=== PATIENT | female | born 1960 | race Caucasian/White ===

== ENCOUNTER 2016-09-05 15:03 | Inpatient (IN) | payer OTHER ==
[~2016-09-05] VITALS: Ht 170.2 cm; Wt 142.4 kg
[~2016-09-05 15:03] MED LIST: ALPR0.5T2 PO; ARIP2TAB PO; ASPI81EC97 PO; BUSP30TA PO; CALC600T56 PO; DILT60TA PO; DIVA500T47 PO; FLUO40CA6 PO; FURO-570 PO; TRAM50TA94 PO; [UNRECOGNIZED DRUG - CODE] PO; [UNRECOGNIZED DRUG - CODE] PO; [UNRECOGNIZED DRUG - CODE] PO
[2016-09-05 15:59] VITALS: BP 82/63
[2016-09-05] MEDS ORDERED: PREN-103 PO (16:11)
[2016-09-05] MEDS ORDERED: PREG150C PO (16:11)
[2016-09-05] MEDS ORDERED: MULT-967 SL (16:11)
[2016-09-05] MEDS ORDERED: MIRA25TE PO (16:11)
[2016-09-05] MEDS ORDERED: BACL10TA4 PO (16:11)
[2016-09-05] MEDS ORDERED: DIPH25TA53 PO (16:11)
--- NOTE | 2016-09-05 16:23 | NUR ---
URINE CUP GIVEN WITH INSTRUCTIONS FOR SAMPLE. PT WHEELCHAIRED TO RESTROOM WITH FRIEND.
--- NOTE | 2016-09-05 16:28 | NUR ---
Patient transferred to bed 6 via wheelchair by tech. RN evaluating patient at bedside.
[2016-09-05] MEDS ORDERED: NACL 0.9% 2,000 ML IV ONE (16:30)
--- NOTE | 2016-09-05 16:30 | NUR ---
56/F BIB FRIEND C/O FEVER, VERNON, BODYACHES, LEFT LEG PAIN/INJURY RT FALL FROM LEG WEAKNESS. HX UROSEPSIS, HTN, 3RD STAGE KIDNEY DISEASE, FRIBROMYALGIA, DEPRESSRION, BIPOLAR DISORDER. REPORTS 102F FEVER LAST NIGHT. STS TOOK ONE OF FRIEND'S AMOXICILLIN.DENIES N/V/D; PT STATED HAS HEADACHE NOTED AT THIS TIME. SKIN BRUISE BOTH LEGS;EDEMA +2 BLE; AAOX4 WITH EVEN AND UNSTEADY GAIT,AMBULATED W/ WALKER; LUNGS CLEAR BL; HR EVEN AND REGULAR; PT DENIES ANY FEVER, CP, SOB, OR COUGH AT THIS TIME; PATIENT STATES PAIN OF 4/10 AT THIS TIME; PATIENT POSITIONED FOR COMFORT; HOB ELEVATED; BEDRAILS UP X2; BED DOWN. ER MD MADE AWARE OF PT STATUS.
[2016-09-05 16:59] LABS: BASOPHILS # (AUTO) 0.1 K/uL (0.00-0.22); BASOPHILS % (AUTO) 1.1 % (0.0-2.0); EOSINOPHILS # (AUTO) 0.2 K/uL (0-0.4); EOSINOPHILS % (AUTO) 1.8 % (0.0-4.0); HEMATOCRIT 38.6 % (36-48); HEMOGLOBIN 12.3 g/dL (12.0-16.0); LYMPHOCYTES # (AUTO) 1.5 K/uL (2.5-16.5); LYMPHOCYTES % (AUTO) 16.9 % (20.5-51.1); MEAN CORPUSCULAR HEMOGLOBIN 29 pg (27-31); MEAN CORPUSCULAR HGB CONC 32 g/dL (33-37); MEAN CORPUSCULAR VOLUME 92 fL (80-94); MONOCYTES # (AUTO) 1.2 K/uL (0.8-1.0); MONOCYTES % (AUTO) 13.8 % (1.7-9.3); NEUTROPHILS # (AUTO) 5.8 K/uL (1.8-7.7); NEUTROPHILS % (AUTO) 66.4 % (42.2-75.2); PLATELET COUNT (AUTO) 132 K/uL (140-450); RED BLOOD CELL COUNT(AUTO) 4.21 MIL/uL (4.20-5.40); RED CELL DISTRIBUTION WIDTH 12.7 % (11.6-13.7); WHITE BLOOD COUNT (AUTO) 8.8 K/uL (4.8-10.8)
[2016-09-05 17:07] LABS: BLOOD GAS HCO3 22.5 mmol/L; BLOOD GAS PCO2 40.1 mmHg (20-50); BLOOD GAS PH 7.366 (7.35-7.45); BLOOD GAS PO2 87.3 mmHg
[2016-09-05 17:13] LABS: CALCIUM 8.6 mg/dL (8.5-10.1); CARBON DIOXIDE 28.3 mmol/L (21-32); CREATININE 1.9 mg/dL (0.6-1.3); POTASSIUM 4.3 mmol/L (3.5-5.1)
[2016-09-05 17:18] LABS: BLOOD GAS BASE EXCESS -2.7 mmol/L (-2.0-2.0)
[2016-09-05 17:19] LABS: BLOOD GAS O2 SAT% 95.9 % (92.0-98.5)
[2016-09-05 17:20] LABS: PARTIAL THROMBOPLASTIN TIME 30.3 secs (22-35.6); PROTHROMBIN TIME 9.7 secs (10.8-13.4)
[2016-09-05 17:21] LABS: LACTIC ACID 1.6 mmol/L (0.4-2.0)
[2016-09-05 17:28] LABS: ALBUMIN 2.7 g/dL (3.4-5.0); TOTAL BILIRUBIN 0.5 mg/dL (0.0-1.0); TOTAL PROTEIN, SERUM 6.7 g/dL (6.4-8.2)
--- NOTE | 2016-09-05 17:30 | NUR ---
Patient appears to be resting comfortably in bed. Vital Signs within normal limits. Respirations even and unlabored.WILL CONTINUE TO MONITOR.
[2016-09-05 17:31] LABS: CKMB RELATIVE INDEX 0.5 (0.0-2.5); CREATINE KINASE MB 7.6 ng/mL (0-3.6)
--- NOTE | 2016-09-05 19:14 | NUR ---
GAVE REPORT TO MARISOL LOPEZ
--- NOTE | 2016-09-05 19:15 | NUR ---
Pt report given to MARISOL LOPEZ. Transfer of care at this time.
--- NOTE | 2016-09-05 19:15 | NUR ---
REPORT RECEIVED FROM MARISOL CODY
[2016-09-05] MEDS ORDERED: ONDANSETRON 4 MG/2 ML VIAL IVP PRN (19:25)
[2016-09-05] MEDS ORDERED: ACETAMINOPHEN 325 MG TAB PO PRN (19:25)
[2016-09-05] MEDS ORDERED: HYDROcodone/APAP 5/325 MG 1 TAB TAB PO PRN (19:25)
[2016-09-05 19:28] LABS: APPEARANCE,URINE CLOUDY (CLEAR); BILIRUBIN,URINE NEGATIVE (NEGATIVE); BLOOD, URINE TRACE-I (NEGATIVE); COLOR,URINE YELLOW (YELLOW); LEUKOCYTE ESTERASE ,URINE 2+ (NEGATIVE); NITRITE, URINE NEGATIVE (NEGATIVE); PH,URINE 5.5 (5.0-9.0); PROTEIN,URINE NEGATIVE (NEGATIVE); UGLUCOSE NEGATIVE (NEGATIVE)
[2016-09-05] MEDS ORDERED: NACL 0.9% 2,500 ML IV ONE (19:30)
[2016-09-05] MEDS ORDERED: NACL 0.9% 1,000 ML IV ONE (19:40)
[2016-09-05 19:41] LABS: BACTERIA,URINE 1+ /HPF (None Seen); RBC,URINE 0-3 /HPF (0-5); WBC,URINE TOO MANY TO COUNT /HPF (0-5)
[2016-09-05 20:04] LABS: CHOL/HDL RATIO 2.9 (1-4.5)
[2016-09-05] MEDS ORDERED: ALPRAZolam 0.5 MG TAB PO PRN (20:05)
[2016-09-05 20:12] LABS: FREE T4 (FREE THYROXINE) 1.17 ng/dL (0.76-1.46); THYROID STIMULATING HORMONE 1.79 uIU/mL (0.34-3.76)
[2016-09-05] MEDS ORDERED: DEXTROSE 50% 50 ML SYR IVP PRN (20:15)
--- NOTE | 2016-09-05 20:15 | NUR ---
Patient will be admitted to care of DR DHILLON. Admited to TE;E. Will go to room 110A. Belongings list completed. Report to MARISOL LEMUS.
[2016-09-05 20:48] VITALS: BP 138/77
--- NOTE | 2016-09-05 20:48 | NUR ---
RECEIVED REPORT FROM ED RN TAWANNA FOR CONTINUITY OF CARE. 56 Y.O. FEMALE ARRIVED TO UNIT WITH DX: SEPSIS 2/2 TO UTI. PATIENT IS A&OX4, DISCUSSED PLAN OF CARE WITH PATIENT AND AT BEDSIDE. SHIFT ASSESSMENT DONE, VS TAKEN, STABLE. NO S/S OF RESPIRATORY DISTRESS NOTED ON ROOM AIR. PATIENT DENIES PAIN AT THIS TIME. WRISTBANDS APPLIED, MRSA SWAB TAKEN. SKIN INTACT. SAFETY PRECAUTIONS ENFORCED. CALL LIGHT WITHIN REACH, WILL CONTINUE TO MONITOR.
[2016-09-05] MEDS ORDERED: BUPROPION HCL 200 MG PO SCH (21:00)
[2016-09-05] MEDS: BACLOFEN 10 MG TAB PO SCH (21:51)
[2016-09-05] MEDS: traMADol 50 MG TAB PO SCH (21:52)
[2016-09-05] MEDS: FLUoxetine 20 MG CAP PO SCH (21:52)
[2016-09-05] MEDS: BLOOD GLUCOSE MONITORING 1 DEV DEV FS SCH (21:58)
[2016-09-05] MEDS: NACL 0.9% 1,000 ML IV SCH (22:00)
[2016-09-05] MEDS: MORPHINE SULFATE 2 MG/ML SYR IVP PRN (22:14)
--- NOTE | 2016-09-05 22:14 | NUR ---
PT C/O PAIN, VS TAKEN AN STABLE, MEDICATED PER MD ORDER. WILL CONTINUE TO MONITOR.
[2016-09-06] VITALS: BP 106/53
--- NOTE | 2016-09-06 00:30 | NUR ---
VS TAKEN, STABLE. PATIENT RESTING AT THIS TIME, IV INFUSING WELL. CALL LIGHT WITHIN REACH. WILL CONTINUE TO MONITOR.
--- NOTE | 2016-09-06 02:00 | NUR ---
PATIENT SLEEPING AT THIS TIME. NO S/S OF DISTRESS OR DISCOMFORT NOTED. WILL CONTINUE TO MONITOR.
[2016-09-06 04:00] VITALS: BP 104/61
--- NOTE | 2016-09-06 04:05 | NUR ---
VS TAKEN, STABLE. PATIENT AWAKE WATCHING TV, ALL NEEDS MET AT THIS TIME. WILL CONTINUE TO MONITOR.
--- NOTE | 2016-09-06 06:00 | NUR ---
PATIENT RESTING IN BED WATCHING TV, C/O FEELING WARM TEMP TAKEN 98.5. CALL LIGHT WITHIN REACH.
[2016-09-06] MEDS: BLOOD GLUCOSE MONITORING 1 DEV DEV FS SCH ×4 (06:21→21:03)
--- NOTE | 2016-09-06 07:15 | NUR ---
ENDORSED PATIENT TO DAY RN FOR CONTINUITY OF CARE, PATIENT IS IN STABLE CONDITION.
--- NOTE | 2016-09-06 07:15 | NUR ---
RECEIVED REPORT FROM NIGHT NURSE. PT IS AAOX4, ON ROOM AIR IV TO RIGHT AC 20G INFUSING WELL. INITIAL ASSESSMENT COMPLETED, REVIEWED PLAN OF CARE WITH PT, PT VERBALIZED UNDERSTANDING. ALL SAFETY PRECAUTIONS MET. CALL LIGHT WITHIN REACH. WILL CONTINUE TO MONITOR.
[2016-09-06 07:38] LABS: ANION GAP 14.2 (8-16); CALCIUM 8.2 mg/dL (8.5-10.1); CARBON DIOXIDE 23.9 mmol/L (21-32); CREATININE 1.5 mg/dL (0.6-1.3); POTASSIUM 4.1 mmol/L (3.5-5.1)
[2016-09-06] MEDS: HYDROcodone/APAP 10/325 MG 1 TAB TAB PO SCH ×5 (07:39→20:55)
[2016-09-06 07:44] LABS: BASOPHILS % (AUTO) 0.7 % (0.0-2.0); EOSINOPHILS # (AUTO) 0.2 K/uL (0-0.4); EOSINOPHILS % (AUTO) 3.2 % (0.0-4.0); HEMATOCRIT 31.7 % (36-48); HEMOGLOBIN 10.4 g/dL (12.0-16.0); LYMPHOCYTES # (AUTO) 1.4 K/uL (2.5-16.5); LYMPHOCYTES % (AUTO) 22.1 % (20.5-51.1); MEAN CORPUSCULAR HEMOGLOBIN 30 pg (27-31); MEAN CORPUSCULAR HGB CONC 33 g/dL (33-37); MEAN CORPUSCULAR VOLUME 91 fL (80-94); MONOCYTES # (AUTO) 0.9 K/uL (0.8-1.0); MONOCYTES % (AUTO) 14.7 % (1.7-9.3); NEUTROPHILS # (AUTO) 3.8 K/uL (1.8-7.7); NEUTROPHILS % (AUTO) 59.3 % (42.2-75.2); PLATELET COUNT (AUTO) 110 K/uL (140-450); RED BLOOD CELL COUNT(AUTO) 3.48 MIL/uL (4.20-5.40); RED CELL DISTRIBUTION WIDTH 12.7 % (11.6-13.7); WHITE BLOOD COUNT (AUTO) 6.3 K/uL (4.8-10.8)
[2016-09-06 07:47] LABS: MAGNESIUM 1.9 mg/dL (1.8-2.4); PHOSPHORUS 3.3 mg/dL (2.5-4.9)
[2016-09-06] MEDS: NACL 0.9% 1,000 ML IV SCH ×2 (07:51→20:21)
[2016-09-06 08:00] VITALS: BP 106/62
[2016-09-06] MEDS ORDERED: NON-FORMULARY ITEM (Mirabegron (Myrbetriq) 25 MG) PO SCH (09:00)
[2016-09-06] MEDS ORDERED: NON-FORMULARY ITEM (Aripiprazole (Abilify) 2 MG) PO SCH (09:00)
--- NOTE | 2016-09-06 09:15 | NUR ---
PATIENT HAS BEEN SCREENED AND CATEGORIZED HIGH NUTRITION RISK. PATIENT WILL BE SEEN WITHIN 1-2 DAYS OF ADMISSION. 09/06/16-09/07/[address]
[2016-09-06 09:17] LABS: HEMOGLOBIN A1C 5.1 % (4.8-5.6)
[2016-09-06] MEDS: DIVALPROEX 500 MG TABEC PO SCH ×3 (09:23→16:57)
[2016-09-06] MEDS: traMADol 50 MG TAB PO SCH ×2 (09:24→20:56)
[2016-09-06] MEDS: LACTOBACILLUS RHAMNOSUS GG 1 EACH CAP PO SCH (09:24)
[2016-09-06] MEDS: PREGABALIN 50 MG CAP PO SCH ×3 (09:24→16:57)
[2016-09-06] MEDS: DILTIAZEM 60 MG TAB PO SCH (09:25)
[2016-09-06] MEDS: BACLOFEN 10 MG TAB PO SCH ×2 (09:25→20:55)
[2016-09-06] MEDS: ECOTRIN 81 MG TABEC PO SCH (09:26)
[2016-09-06] MEDS: CALCIUM CARB 600 MG TAB PO SCH (09:26)
[2016-09-06] MEDS: FLUoxetine 20 MG CAP PO SCH ×2 (09:26→20:56)
[2016-09-06 12:00] VITALS: BP 113/58
--- NOTE | 2016-09-06 12:30 | NUR ---
DUE MEDICATIONS GIVEN. PT CURRENTLY EATING LUNCH. NO S/S OF DISTRESS NOTED, FAMILY AT BEDSIDE. ALL NEEDS MET. CALL LIGHT WITHIN REACH. WILL CONTINUE TO MONITOR.
--- NOTE | 2016-09-06 13:53 | NUR ---
CHECKED IN ON PT, PY CURRENTLY VISITING WITH FAMILY, NO S/S OF DISTRESS OR DISCOMFORT NOTED ALL NEEDS MET. CALL LIGHT WITHIN REACH. WILL CONTINUE TO MONITOR.
--- NOTE | 2016-09-06 15:35 | NUR ---
09/06/16 RD INITIAL ASSESSMENT COMPLETED PLEASE REFER TO NUTRITION ASSESSMENT UNDER CARE ACTIVITY FOR ESTIMATED NUTRITIONAL NEEDS. 1. CONTINUE REGULAR DIET 2. RD TO FOLLOW-UP 2-3 DAYS; HIGH RISK [address]ONG [address]
[2016-09-06 16:00] VITALS: BP 110/58
--- NOTE | 2016-09-06 16:59 | NUR ---
DUE MEDICATIONS GIVEN. ALL NEEDS MET. WILL CONTINUE TO MONITOR.
--- NOTE | 2016-09-06 19:28 | NUR ---
ENDORSED PLAN OF CARE TO NIGHT NURSE, PT IN STABLE CONDITION.
--- NOTE | 2016-09-06 19:29 | NUR ---
RECD. RESTING IN BED, AWAKE, A/OX4. RESPIRATION EVEN AND UNLABORED. IV OF NS AT 80 ML/HR INFUSING, RIGHT AC G20. WATCHING TV. PLAN OF CARE FOR THE SHIFT DISCUSSED. VERBALIZED UNDERSTANDING. SAFETY MEASURES ENFORCED. DENIES PAIN 0/10.
[2016-09-06 20:00] VITALS: BP 98/51
--- NOTE | 2016-09-06 20:00 | NUR ---
Patient's Plan of Care was discussed and reviewed with ELECTRIC METER INSTALLER HELPER: MARIA G VILLAGOMEZ
--- NOTE | 2016-09-06 20:56 | NUR ---
DUE PO MEDICATIONS GIVEN. ATE 100% OF SNACK.
[2016-09-07] VITALS: BP 117/66
--- NOTE | 2016-09-07 | NUR ---
SLEEPING COMFORTABLY IN BED.
[2016-09-07 04:00] VITALS: BP 118/64
--- NOTE | 2016-09-07 04:00 | NUR ---
RESTING COMFORTABLY IN BED, NO COMPLAINT OF PAIN OR DISCOMFORT.
[2016-09-07] MEDS: NACL 0.9% 1,000 ML IV SCH ×2 (05:06→08:15)
[2016-09-07] MEDS: BLOOD GLUCOSE MONITORING 1 DEV DEV FS SCH ×4 (06:19→21:11)
--- NOTE | 2016-09-07 06:40 | NUR ---
CONDITION REMAIN STABLE. WILL ENDORSED TO AM NURSE FOR CONTINUITY OF CARE.
[2016-09-07 06:55] LABS: BASOPHILS # (AUTO) 0.1 K/uL (0.00-0.22); EOSINOPHILS # (AUTO) 0.4 K/uL (0-0.4); EOSINOPHILS % (AUTO) 5.9 % (0.0-4.0); HEMATOCRIT 33.6 % (36-48); LYMPHOCYTES # (AUTO) 1.1 K/uL (2.5-16.5); LYMPHOCYTES % (AUTO) 19.3 % (20.5-51.1); MEAN CORPUSCULAR HEMOGLOBIN 30 pg (27-31); MEAN CORPUSCULAR HGB CONC 33 g/dL (33-37); MEAN CORPUSCULAR VOLUME 91 fL (80-94); MONOCYTES # (AUTO) 0.7 K/uL (0.8-1.0); MONOCYTES % (AUTO) 12.1 % (1.7-9.3); NEUTROPHILS # (AUTO) 3.6 K/uL (1.8-7.7); NEUTROPHILS % (AUTO) 61.7 % (42.2-75.2); PLATELET COUNT (AUTO) 135 K/uL (140-450); RED BLOOD CELL COUNT(AUTO) 3.69 MIL/uL (4.20-5.40); RED CELL DISTRIBUTION WIDTH 12.7 % (11.6-13.7); WHITE BLOOD COUNT (AUTO) 5.9 K/uL (4.8-10.8)
[2016-09-07 07:03] LABS: ANION GAP 11.4 (8-16); CALCIUM 8.5 mg/dL (8.5-10.1); CARBON DIOXIDE 27.3 mmol/L (21-32); CREATININE 1.6 mg/dL (0.6-1.3); POTASSIUM 4.7 mmol/L (3.5-5.1)
[2016-09-07 07:16] LABS: PHOSPHORUS 4.2 mg/dL (2.5-4.9)
--- NOTE | 2016-09-07 07:17 | NUR ---
RECEIVED REPORT FROM NIGHT NURSE. PT IS AAOX4, ON ROOM AIR IV TO RIGHT AC 20G INFUSING WELL. PT STATES NO PAIN, NO S/S OF DISTRESS OR DISCOMFORT. INITIAL ASSESSMENT COMPLETED, REVIEWED PLAN OF CARE WITH PT, PT VERBALIZED UNDERSTANDING. ALL SAFETY PRECAUTIONS MET. CALL LIGHT WITHIN REACH. WILL CONTINUE TO MONITOR.
--- NOTE | 2016-09-07 07:17 | NUR ---
ENDORSED TO MARISOL GIBBS FOR CONTINUITY OF CARE.
[2016-09-07 07:36] VITALS: BP 126/74
[2016-09-07 07:44] LABS: CKMB RELATIVE INDEX 0.6 (0.0-2.5); CREATINE KINASE MB 1.9 ng/mL (0-3.6)
[2016-09-07] MEDS: DIVALPROEX 500 MG TABEC PO SCH (08:15)
[2016-09-07] MEDS: FLUoxetine 20 MG CAP PO SCH ×2 (08:15→21:07)
[2016-09-07] MEDS: PREGABALIN 50 MG CAP PO SCH ×3 (08:15→16:15)
[2016-09-07] MEDS: HYDROcodone/APAP 10/325 MG 1 TAB TAB PO SCH ×4 (08:15→21:06)
[2016-09-07] MEDS: CALCIUM CARB 600 MG TAB PO SCH (08:15)
[2016-09-07] MEDS: ECOTRIN 81 MG TABEC PO SCH (08:15)
--- NOTE | 2016-09-07 08:15 | NUR ---
DUE MEDICATIONS GIVEN. PT CURRENTLY EATING BREAKFAST, ALL NEEDS MET. CALL LIGHT WITHIN REACH. WILL CONTINUE TO MONITOR.
[2016-09-07] MEDS: traMADol 50 MG TAB PO SCH ×2 (08:16→21:06)
[2016-09-07] MEDS: LACTOBACILLUS RHAMNOSUS GG 1 EACH CAP PO SCH (08:16)
[2016-09-07] MEDS: DILTIAZEM 60 MG TAB PO SCH (08:16)
[2016-09-07] MEDS: BACLOFEN 10 MG TAB PO SCH ×2 (08:16→21:05)
--- NOTE | 2016-09-07 10:05 | NUR ---
PT CURRENTLY SLEEPING, CALL LIGHT WITHIN REACH. WILL CONTINUE TO MONITOR.
[2016-09-07] MEDS: LACTULOSE 20 GM/30 ML UDC PO SCH (12:32)
[2016-09-07] MEDS: MAGNESIUM HYDROXIDE 2400 MG/30 ML UDC PO SCH (12:32)
[2016-09-07] MEDS: DIVALPROEX 250 MG TABEC PO SCH ×2 (12:33→16:15)
--- NOTE | 2016-09-07 12:34 | NUR ---
DUE MEDICATIONS GIVEN. PT CURRENTLY EATING LUNCH. ALL NEEDS MET. CALL LIGHT WITHIN REACH. WILL CONTINUE TO MONITOR.
--- NOTE | 2016-09-07 14:10 | NUR ---
CHECKED IN ON PT, PT CURRENTLY IN BED, NO S/S OF DISTRESS NOTED, ALL NEEDS MET. CALL LIGHT WITHIN RAECH. WILL CONTINUE TO MONITOR.
[2016-09-07 16:00] VITALS: BP 103/55
--- NOTE | 2016-09-07 16:16 | NUR ---
DUE MEDICATIONS GIVEN. PT TOLERATED WELL. ALL NEEDS MET. CALL LIGHT WITHIN REACH. WILL CONTINUE TO MONITOR. FAMILY AT BEDSIDE.
[2016-09-07] MEDS ORDERED: ARIP5TAB10 PO (16:37)
[2016-09-07] MEDS ORDERED: ARIPiprazole 10 MG TAB PO SCH (17:00)
--- NOTE | 2016-09-07 17:47 | NUR ---
PT CURRENTLY EATING DINNER, NO S/S OF DISTRESS NOTED, FAMILY AT BEDSIDE. CALL LIGHT WITHIN REACH. WILL CONTINUE TO MONITOR.
--- NOTE | 2016-09-07 19:20 | NUR ---
ENDORSED PLAN OF CARE TO NIGHT NURSE, PT IN STABLE CONDITION.
--- NOTE | 2016-09-07 19:22 | NUR ---
RECEIVED PT FROM BERNIE RN PT IS AAOX4 GENERALIZED WEAKNESS IV ON RT AC INFUSING WELL REPOSITIONED INITIAL ASSESSMENT DONE
[2016-09-07 20:00] VITALS: BP 92/52
[2016-09-07] MEDS: BUSPIRONE HCL 30 MG PO SCH (21:05)
--- NOTE | 2016-09-07 21:30 | NUR ---
BLOOD SUGAR TEST 88 HS SNACK IS GIVEN PT HAS A GOOD APPETITE
--- NOTE | 2016-09-07 23:00 | NUR ---
PT INCONTINENT LINEN CHANGED, REPOSITIONED Q2H NOT DISTRESS NOTED
[2016-09-08] VITALS: BP 102/58
[2016-09-08] MEDS: NACL 0.9% 1,000 ML IV SCH ×3 (01:20→14:01)
--- NOTE | 2016-09-08 01:33 | NUR ---
PT SLEEPING WELL REPOSITIOED NOT DISTRESS NOTED IV ON RT ARM INFUSING WELL
--- NOTE | 2016-09-08 04:00 | NUR ---
SPONGE BATH GIVEN, LINEN CHANGED, PT REPOSITIONED NOT DISTRESS NOTED
--- NOTE | 2016-09-08 06:04 | NUR ---
PT AAOX4 COOERATIVE, NOT FEVER DENIES ANY PAIN BLOOD SUGAR TEST 88
[2016-09-08 07:04] LABS: BASOPHILS # (AUTO) 0.1 K/uL (0.00-0.22); BASOPHILS % (AUTO) 1.2 % (0.0-2.0); EOSINOPHILS # (AUTO) 0.4 K/uL (0-0.4); EOSINOPHILS % (AUTO) 7.3 % (0.0-4.0); HEMATOCRIT 32.3 % (36-48); HEMOGLOBIN 10.5 g/dL (12.0-16.0); LYMPHOCYTES # (AUTO) 1.5 K/uL (2.5-16.5); LYMPHOCYTES % (AUTO) 27.7 % (20.5-51.1); MEAN CORPUSCULAR HEMOGLOBIN 30 pg (27-31); MEAN CORPUSCULAR HGB CONC 32 g/dL (33-37); MEAN CORPUSCULAR VOLUME 92 fL (80-94); MONOCYTES # (AUTO) 0.8 K/uL (0.8-1.0); MONOCYTES % (AUTO) 15.4 % (1.7-9.3); NEUTROPHILS # (AUTO) 2.5 K/uL (1.8-7.7); NEUTROPHILS % (AUTO) 48.4 % (42.2-75.2); PLATELET COUNT (AUTO) 141 K/uL (140-450); RED BLOOD CELL COUNT(AUTO) 3.53 MIL/uL (4.20-5.40)
[2016-09-08 07:11] LABS: ANION GAP 9.1 (8-16); CALCIUM 8.4 mg/dL (8.5-10.1); CARBON DIOXIDE 29.6 mmol/L (21-32); CREATININE 1.5 mg/dL (0.6-1.3); POTASSIUM 4.7 mmol/L (3.5-5.1)
--- NOTE | 2016-09-08 07:20 | NUR ---
PT AWAKE AND ALERT, NO SIGNS OF ACUTE DISTRESS. BREATHING EVEN AND UNLABORED BILATERALLY, BOWEL SOUNDS ACTIVE IN ALL 4 QUADRANTS, SKIN INTACT, ON ROOM AIR, AMBULATORY WITH BRP USES WALKER, IV PATENT WITH NO REDNESS OR SWELLING, BOWEL AND BLADDER CONTINENT, BED IN LOW POSITION WITH BILATERAL HALF SIDE RAILS UP, CALL LIGHT WITHIN REACH, RE-ORIENTED PATIENT TO UNIT AND HOSPITAL, PT VERBALIZED UNDERSTANDING.
[2016-09-08 07:25] LABS: MAGNESIUM 1.8 mg/dL (1.8-2.4); PHOSPHORUS 3.7 mg/dL (2.5-4.9)
[2016-09-08] MEDS: BLOOD GLUCOSE MONITORING 1 DEV DEV FS SCH ×4 (07:30→21:01)
[2016-09-08 07:38] LABS: WHITE BLOOD COUNT (AUTO) 5.3 K/uL (4.8-10.8)
[2016-09-08 08:00] VITALS: BP 124/72
[2016-09-08] MEDS: ARIPiprazole 10 MG TAB PO SCH (08:22)
[2016-09-08] MEDS: BACLOFEN 10 MG TAB PO SCH ×2 (08:23→21:52)
[2016-09-08] MEDS: DIVALPROEX 250 MG TABEC PO SCH ×3 (08:23→16:49)
[2016-09-08] MEDS: DILTIAZEM 60 MG TAB PO SCH (08:23)
[2016-09-08] MEDS: ECOTRIN 81 MG TABEC PO SCH (08:23)
[2016-09-08] MEDS: PREGABALIN 50 MG CAP PO SCH ×3 (08:24→16:49)
[2016-09-08] MEDS: CALCIUM CARB 600 MG TAB PO SCH (08:24)
[2016-09-08] MEDS: LACTOBACILLUS RHAMNOSUS GG 1 EACH CAP PO SCH (08:24)
[2016-09-08] MEDS: FLUoxetine 20 MG CAP PO SCH ×2 (08:24→21:52)
[2016-09-08] MEDS: traMADol 50 MG TAB PO SCH ×2 (08:24→21:52)
[2016-09-08] MEDS: HYDROcodone/APAP 10/325 MG 1 TAB TAB PO SCH ×4 (08:25→21:52)
[2016-09-08] MEDS: BUSPIRONE HCL 30 MG PO SCH (08:32)
--- NOTE | 2016-09-08 11:53 | NUR ---
09/08/16 RD FOLLOW UP COMPLETED. PLEASE REFER TO NUTRITION PROGRESS NOTE UNDER CARE ACTIVITY FOR ESTIMATED NUTRITION NEEDS. RD RECOMMENDATIONS: 1- RECOMMEND CONTINUE CARDIAC DIET; SUFFICIENT TO MEET >75% ESTIMATED DAILY NUTRITIONAL NEEDS. 2- EDUCATED PT ON DIET. 3- FOLLOW UP 3-5 DAYS; MODERATE RISK. DELILAH VITAL MBA, RD
[2016-09-08] MEDS: MAGNESIUM HYDROXIDE 2400 MG/30 ML UDC PO SCH (12:22)
[2016-09-08] MEDS: LACTULOSE 20 GM/30 ML UDC PO SCH (12:23)
--- NOTE | 2016-09-08 12:43 | NUR ---
RECEIVED ORDERS FOR MORNING LABS FROM DR KHAN, NOTED, WILL CARRY OUT.
[2016-09-08] MEDS ORDERED: PATIENTS OWN TABLET PO SCH ×3 (15:00→17:00)
[2016-09-08 16:00] VITALS: BP 108/60
--- NOTE | 2016-09-08 16:22 | NUR ---
PHYSICAL THERAPY CO-SIGN The Physical Therapy Progress Notes documented by Education Analyst have been reviewed. Reviewed/Co-Signed by: Jo Ann Jean Documentation Done by:WINDY STARKEY AERIAL INSTALLER PROGRESS SHAMEKA; WILL BENEFIT W/ P.T. AFTER ACUTE STAY PRIOR TO RETURNING HOME. Addendum: 09/08/16 at 1622 by Jo Ann Jean PT Amended: Links added.
[2016-09-08] MEDS: buPROPion 150 MG TABER PO SCH (16:49)
--- NOTE | 2016-09-08 19:37 | NUR ---
PT AWAKE AND ALERT, NO SIGNS OF ACUTE DISTRESS. BED IN LOW POSITION BILATERAL HALF SIDE RAILS UP WITH CALL LIGHT WITHIN REACH. ENDORSED PATIENT TO MEAL COOKER NURSE FOR CONTINUITY OF CARE.
--- NOTE | 2016-09-08 21:52 | NUR ---
DUE MEDICATIONS GIVEN.
[2016-09-09] VITALS: BP 101/60
--- NOTE | 2016-09-09 | NUR ---
AWAKE,NOT IN ANY KIND OF DISTRESS. NO PAIN OR DISCOMFORT NOTED. SNACK OF PUDDING AND APPLE JUICE GIVEN REQUESTED. SIDE RAILS UP,CALL LIGHT WITHIN REACH. KEPT WARM AND COMFORTABLE. VS REMAIN STABLE.
[2016-09-09] MEDS: MORPHINE SULFATE 2 MG/ML SYR IVP PRN (04:21)
--- NOTE | 2016-09-09 04:21 | NUR ---
COMPLAINED OF LEG PAIN (6/10). MORPHINE 2 MG IVP GIVEN ORDERED. VS ARE OTHERWISE STABLE.
[2016-09-09 04:22] VITALS: BP 115/47
[2016-09-09] MEDS: BLOOD GLUCOSE MONITORING 1 DEV DEV FS SCH ×4 (06:11→20:27)
--- NOTE | 2016-09-09 06:11 | NUR ---
ACCICHECK=83. NO INSULIN COVERAGE ORDERED/NEEDED.
--- NOTE | 2016-09-09 07:14 | NUR ---
ENDORSED CARE TO HERBIE RN.
[2016-09-09 07:29] LABS: BASOPHILS # (AUTO) 0.1 K/uL (0.00-0.22); BASOPHILS % (AUTO) 1.8 % (0.0-2.0); EOSINOPHILS # (AUTO) 0.5 K/uL (0-0.4); EOSINOPHILS % (AUTO) 7.1 % (0.0-4.0); HEMATOCRIT 33.9 % (36-48); LYMPHOCYTES # (AUTO) 1.7 K/uL (2.5-16.5); LYMPHOCYTES % (AUTO) 26.6 % (20.5-51.1); MEAN CORPUSCULAR HEMOGLOBIN 30 pg (27-31); MEAN CORPUSCULAR HGB CONC 33 g/dL (33-37); MEAN CORPUSCULAR VOLUME 91 fL (80-94); MONOCYTES # (AUTO) 0.7 K/uL (0.8-1.0); MONOCYTES % (AUTO) 11.5 % (1.7-9.3); NEUTROPHILS # (AUTO) 3.5 K/uL (1.8-7.7); PLATELET COUNT (AUTO) 170 K/uL (140-450); RED BLOOD CELL COUNT(AUTO) 3.71 MIL/uL (4.20-5.40); RED CELL DISTRIBUTION WIDTH 12.8 % (11.6-13.7); WHITE BLOOD COUNT (AUTO) 6.5 K/uL (4.8-10.8)
[2016-09-09 07:30] LABS: ANION GAP 11.4 (8-16); CALCIUM 8.6 mg/dL (8.5-10.1); CARBON DIOXIDE 29.3 mmol/L (21-32); CREATININE 1.3 mg/dL (0.6-1.3); POTASSIUM 4.7 mmol/L (3.5-5.1)
[2016-09-09 07:52] LABS: PHOSPHORUS 3.4 mg/dL (2.5-4.9)
[2016-09-09 07:53] VITALS: BP 136/76
[2016-09-09] MEDS: ECOTRIN 81 MG TABEC PO SCH (08:19)
[2016-09-09] MEDS: buPROPion 150 MG TABER PO SCH ×3 (08:20→16:35)
[2016-09-09] MEDS: CALCIUM CARB 600 MG TAB PO SCH (08:20)
[2016-09-09] MEDS: DIVALPROEX 250 MG TABEC PO SCH ×3 (08:20→16:34)
[2016-09-09] MEDS: HYDROcodone/APAP 10/325 MG 1 TAB TAB PO SCH ×4 (08:20→21:24)
[2016-09-09] MEDS: LACTOBACILLUS RHAMNOSUS GG 1 EACH CAP PO SCH (08:20)
[2016-09-09] MEDS: DILTIAZEM 60 MG TAB PO SCH (08:21)
[2016-09-09] MEDS: BACLOFEN 10 MG TAB PO SCH ×2 (08:21→21:23)
[2016-09-09] MEDS: FLUoxetine 20 MG CAP PO SCH ×2 (08:21→21:24)
[2016-09-09] MEDS: ARIPiprazole 10 MG TAB PO SCH (08:21)
[2016-09-09] MEDS: traMADol 50 MG TAB PO SCH ×2 (08:21→21:24)
[2016-09-09] MEDS: PREGABALIN 50 MG CAP PO SCH ×3 (08:21→16:34)
[2016-09-09] MEDS: PATIENTS OWN TABLET PO SCH (08:22)
--- NOTE | 2016-09-09 09:25 | NUR ---
PT AWAKE AND ORIENTED X4, BREATHING EVENLY AND UNLABORED, NO SIGNS OF ACUTE DISTRESS. SKIN IS WARM AND DRY. . NO SIGNS OF ANY BOWEL/BLADDER DISCOMFORT. DENIES OF ANY PAIN OR DISCOMFORT AT THIS TIME, ALL NEEDS ATTENDED, SAFETY PRECAUTIONS MAINTAINED. CALL LIGHT WITHIN REACH.
[2016-09-09] MEDS: NACL 0.9% 1,000 ML IV SCH ×2 (10:39→21:23)
[2016-09-09] MEDS: LACTULOSE 20 GM/30 ML UDC PO SCH (12:08)
[2016-09-09] MEDS: MAGNESIUM HYDROXIDE 2400 MG/30 ML UDC PO SCH (12:08)
[2016-09-09 16:00] VITALS: BP 104/72
--- NOTE | 2016-09-09 18:04 | NUR ---
RECEIVED NEW LAB ORDERS FROM DR. KHAN, NOTED AND CARRIED OUT.
--- NOTE | 2016-09-09 19:03 | NUR ---
PT AWAKE AND RESPONSIVE, NO SIGNS OF ACUTE DISTRESS. ENDORSED TO ONCOMING BILL POSTER INSTALLER NURSE FOR CONTINUITY OF CARE.
--- NOTE | 2016-09-09 20:00 | NUR ---
RECEIVED ALERT,ORIENTED,VERBALLY RESPONSIVE. AFEBRILE, NOT IN ACUTE DISTRESS. DENIES ANY PAIN OR DISCOMFORT. WITH IV FLUIDS NS INFUSING AT 80 ML/HR VIA LEFT HAND #22 IV LINE. VS STABLE, WILL CONTINUE TO MONITOR. NEEDS ATTENDED.
--- NOTE | 2016-09-09 20:27 | NUR ---
[id number]. NO INSULIN COVERAGE NEEDED/ORDERED.
--- NOTE | 2016-09-09 21:24 | NUR ---
DUE MEDICATIONS GIVEN SCHEDULED.
[2016-09-10] VITALS: BP 121/70
--- NOTE | 2016-09-10 | NUR ---
AWAKE,NOT IN ANY KIND OF DISTRESS. NO PAIN OR DISCOMFORT NOTED. SIDE RAILS UP, CALL LIGHT WITHIN REACH. KEPT WARM AND COMFORTABLE. VS REMAIN STABLE.
--- NOTE | 2016-09-10 04:00 | NUR ---
ASLEEP, NO PAIN OR DISCOMFORT. NO SIGNIFICANT CHANGE IN CONDITION. WILL CONTINUE TO MONITOR.
[2016-09-10] MEDS: BLOOD GLUCOSE MONITORING 1 DEV DEV FS SCH ×3 (06:13→16:08)
--- NOTE | 2016-09-10 06:13 | NUR ---
ACCUCHECK=82, NO INSULIN COVERAGE NEEDED.
[2016-09-10 06:17] LABS: BASOPHILS # (AUTO) 0.1 K/uL (0.00-0.22); BASOPHILS % (AUTO) 1.3 % (0.0-2.0); EOSINOPHILS # (AUTO) 0.4 K/uL (0-0.4); EOSINOPHILS % (AUTO) 5.7 % (0.0-4.0); HEMATOCRIT 32.3 % (36-48); HEMOGLOBIN 10.4 g/dL (12.0-16.0); LYMPHOCYTES # (AUTO) 1.8 K/uL (2.5-16.5); LYMPHOCYTES % (AUTO) 27.6 % (20.5-51.1); MEAN CORPUSCULAR HEMOGLOBIN 29 pg (27-31); MEAN CORPUSCULAR HGB CONC 32 g/dL (33-37); MEAN CORPUSCULAR VOLUME 91 fL (80-94); MONOCYTES # (AUTO) 0.6 K/uL (0.8-1.0); MONOCYTES % (AUTO) 9.7 % (1.7-9.3); NEUTROPHILS # (AUTO) 3.6 K/uL (1.8-7.7); NEUTROPHILS % (AUTO) 55.7 % (42.2-75.2); PLATELET COUNT (AUTO) 202 K/uL (140-450); RED BLOOD CELL COUNT(AUTO) 3.54 MIL/uL (4.20-5.40); RED CELL DISTRIBUTION WIDTH 12.8 % (11.6-13.7); WHITE BLOOD COUNT (AUTO) 6.5 K/uL (4.8-10.8)
[2016-09-10 06:33] LABS: MAGNESIUM 2.1 mg/dL (1.8-2.4); PHOSPHORUS 3.4 mg/dL (2.5-4.9)
[2016-09-10 06:36] LABS: ANION GAP 10.6 (8-16); CALCIUM 8.5 mg/dL (8.5-10.1); CARBON DIOXIDE 29.3 mmol/L (21-32); CREATININE 1.4 mg/dL (0.6-1.3); POTASSIUM 4.9 mmol/L (3.5-5.1)
--- NOTE | 2016-09-10 07:13 | NUR ---
ENDORSED CARE TO HERBIE RN.
--- NOTE | 2016-09-10 07:14 | NUR ---
PT AWAKE AND ORIENTED X4, BREATHING EVENLY AND UNLABORED, NO SIGNS OF ACUTE DISTRESS. SKIN IS WARM AND DRY. NO SIGNS OF ANY BOWEL/BLADDER DISCOMFORT. DENIES OF ANY PAIN OR DISCOMFORT AT THIS TIME, ALL NEEDS ATTENDED, SAFETY PRECAUTIONS MAINTAINED. CALL LIGHT WITHIN REACH.
[2016-09-10 07:47] VITALS: BP 153/83
[2016-09-10] MEDS: DIVALPROEX 250 MG TABEC PO SCH ×3 (08:55→16:23)
[2016-09-10] MEDS: buPROPion 150 MG TABER PO SCH ×3 (08:55→16:23)
[2016-09-10] MEDS: ECOTRIN 81 MG TABEC PO SCH (08:56)
[2016-09-10] MEDS: ARIPiprazole 10 MG TAB PO SCH (08:56)
[2016-09-10] MEDS: BACLOFEN 10 MG TAB PO SCH (08:56)
[2016-09-10] MEDS: HYDROcodone/APAP 10/325 MG 1 TAB TAB PO SCH ×3 (08:56→16:23)
[2016-09-10] MEDS: traMADol 50 MG TAB PO SCH (08:56)
[2016-09-10] MEDS: CALCIUM CARB 600 MG TAB PO SCH (08:56)
[2016-09-10] MEDS: PREGABALIN 50 MG CAP PO SCH ×3 (08:56→16:23)
[2016-09-10] MEDS: LACTOBACILLUS RHAMNOSUS GG 1 EACH CAP PO SCH (08:56)
[2016-09-10] MEDS: DILTIAZEM 60 MG TAB PO SCH (08:57)
[2016-09-10] MEDS: FLUoxetine 20 MG CAP PO SCH (08:57)
[2016-09-10] MEDS: PATIENTS OWN TABLET PO SCH (09:00)
--- NOTE | 2016-09-10 10:04 | NUR ---
WAS SEEN BY PHYSICAL THERAPY TODAY. SEE PT NOTES FOR MORE INFO.
[2016-09-10] MEDS: NACL 0.9% 1,000 ML IV SCH (11:55)
[2016-09-10] MEDS: LACTULOSE 20 GM/30 ML UDC PO SCH (12:02)
[2016-09-10] MEDS: MAGNESIUM HYDROXIDE 2400 MG/30 ML UDC PO SCH (12:03)
--- NOTE | 2016-09-10 12:34 | NUR ---
Social Service Note: I met with patient at bedside, in order to discuss discharge plan. Patient is in agreement with short term snf placement for physical therapy. I provided her with a snf list. Per patient, her first snf choice is [facility] , second is [facility], and third is [facility]. I faxed inquiry to [facility]. Per Swetha, nurse Rosanna from [facility] will come to the hospital to meet with patient, I informed patient of this. Rosanna came and met with patient and stated patient has been medically accepted. I received a phone call from Shari from [facility], she stated they are in the process of checking snf medicare days, Shari will call me back once snf days are verified, bottle caser Celia dickson.
--- NOTE | 2016-09-10 14:20 | NUR ---
Social Service Note: Per Shari from [facility] , patient has been assigned room 19C. She stated they would like patient to be transfer to [facility] after 6pm, accepting physician is , case maker Celia dickson.
--- NOTE | 2016-09-10 14:30 | NUR ---
WAS NOTIFIED BY MAYUR FROM , PT HAS AVAILABLE ROOM AT [facility]. ASSIGNED RESIDENT MADE AWARE, REPORT GIVEN TO JAROD DAMON AT [facility]. ESTIMATED PICKUP TIME IS 1800 BY LAMBERTO.
[2016-09-10] MEDS ORDERED: DIVA250E1 PO (15:35)
[2016-09-10] MEDS ORDERED: ARIP10TA28 PO (15:35)
[2016-09-10] MEDS ORDERED: BUPR150T22 PO (15:35)
[2016-09-10] MEDS ORDERED: Patients Own Medication PO (15:35)
[2016-09-10] MEDS ORDERED: D50SYR IVP (15:35)
[2016-09-10] MEDS ORDERED: ROC2I IV ×2 (15:35→15:41)
[2016-09-10] MEDS ORDERED: BLOO1STR10 FS (15:35)
[2016-09-10] MEDS ORDERED: ACET-1182 PO (15:35)
[2016-09-10] MEDS ORDERED: LACT10CA PO (15:35)
--- NOTE | 2016-09-10 15:38 | NUR ---
CM NOTE SPOKE WITH [facility] LEONARD LINDSAY PH# [phone] FOR TRANSPORTATION AUTH# [id number]. SPOKE WITH CHRISSY OF [facility] TRANSPORT PH# [phone] JALOUSIES INSTALLER TIME 1800 TODAY BY BARIATRIC ADA GOING TO [facility] [address] MITCHELL, NUMBER TO CALL FOR REPORT [phone]. NURSE HERBIE EXT [phone] AWARE
[2016-09-10 16:00] VITALS: BP 107/70
--- NOTE | 2016-09-10 18:00 | NUR ---
PT ALERT AND RESPONSIVE, NO SIGNS OF ACUTE DISTRESS. AUGUST D/C TO [facility], [place] TODAY. WAS NOTIFIED BY [facility] THAT THEY WILL HAVE A 40 MINUTE DELAYED ETA. PT AWARE. EDUCATED ON CONTINUING PLAN OF CARE OF IV ABX AND PHYSICAL THERAPY. PT VERBALIZED UNDERSTANDING. KEPT IV ON LEFT HAND ON HEPLOCK. WRIST BANDS REMOVED, PERSONAL BELONGINGS WITH PT UPON DISCHARGE.
--- NOTE | 2016-09-10 18:45 | NUR ---
[facility] ARRIVE, PICKED UP PATIENT AND TRANSFERRED VIA GURNEY GOING TO [facility].
== END 2016-09-10 18:45 | DRG 689 ==
LOC: MED 15:03 → MTU 19:27
PROVIDERS: ADMIT Family Medicine; ATTEND Family Medicine
DX: N39.0 Urinary tract infection, site not specified (principal); G93.41 Metabolic encephalopathy; E43 Unspecified severe protein-calorie malnutrition; Z68.42 Body mass index [BMI] 45.0-49.9, adult; M79.7 Fibromyalgia; D64.9 Anemia, unspecified; B96.20 Unspecified Escherichia coli [E. coli] as the cause of diseases classified elsewhere; M17.0 Bilateral primary osteoarthritis of knee; I12.9 Hypertensive chronic kidney disease with stage 1 through stage 4 chronic kidney disease, or unspecified chronic kidney disease; N18.3 Chronic kidney disease, stage 3 (moderate); E66.01 Morbid (severe) obesity due to excess calories; F31.9 Bipolar disorder, unspecified; Z98.84 Bariatric surgery status; Z90.49 Acquired absence of other specified parts of digestive tract; Z88.8 Allergy status to other drugs, medicaments and biological substances; Z79.899 Other long term (current) drug therapy; Z87.440 Personal history of urinary (tract) infections; Z82.0 Family history of epilepsy and other diseases of the nervous system
CPT/HCPCS: 36415; 36600; 70450; 71010; 73590; 80048; 80053; 81001; 82550; 82553; 82803; 82948; 83036; 83605; 83735; 83874; 83880; 84100; 84436; 84439; 84443; 84479; 84484; 85025; 85610; 85730; 87040; 87081; 87086; 87186; 93005; 96360; 97110; 97116; 97140; 97530; 99291; C1758; J0696; J2270; J7030; J7060

== ENCOUNTER 2018-06-22 14:39 | Inpatient (IN) | payer OTHER ==
[~2018-06-22] VITALS: Ht 170.2 cm; Wt 149.7 kg
[~2018-06-22 14:39] MED LIST changes: +ABI10 PO; +ACET-1182 PO; +ACET-9536 PO; -ARIP2TAB PO; +ARIP5TAB8 PO; +BACL10TA4 PO; +BLOO1STR56 FS; +BUPR150T22 PO; -BUSP30TA PO; +BUSP30TA2 PO; +D50SYR IVP; +DIPH25TA53 PO; +DIVA250E1 PO; -FURO-570 PO; +LACT10CA PO; +MIRA25TE PO; +MULT-967 SL; +PREG150C PO; +PREN-103 PO; +Patients Own Medication PO; +ROC2I IV; +TRAM50TA1 PO; -TRAM50TA94 PO; -[UNRECOGNIZED DRUG - CODE] PO; -[UNRECOGNIZED DRUG - CODE] PO
--- NOTE | 2018-06-22 14:39 | NUR ---
PT BIBA BLS TO BED 5
[2018-06-22 14:44] VITALS: BP 115/64
--- NOTE | 2018-06-22 14:44 | NUR ---
BIBA FOR FALL AT HOME. PT STATED SHE "WAS WALKING TO THE RESTROOM AND STARTED TO FEEL DIZZY FELL AND LANDED ON BOTH HANDS AND KNEES". SPEECH IS CLEAR, LANDSCAPING MANAGER STRENGTH IS STRONG/EQUAL. NO NEURO DEFECITS NOTED. SKIN IS PINK/WARM/DRY; AAOX4, HR EVEN AND REGULAR; PT DENIES ANY FEVER, CP, SOB, OR COUGH AT THIS TIME; PATIENT STATES PAIN OF 7/10 AT THIS TIME, ACHING IN BILAT KNEES; VSS; PATIENT POSITIONED FOR COMFORT; HOB ELEVATED; BEDRAILS UP X2; BED DOWN.
--- NOTE | 2018-06-22 15:30 | NUR ---
PT RESTING IN BED, AT BEDSIDE. NO ACUTE DISTRESS NOTED
[2018-06-22] MEDS ORDERED: ACETAMINOPHEN 325 MG TAB PO ONE (16:20)
[2018-06-22] MEDS ORDERED: traMADol 50 MG TAB PO ONE (16:20)
--- NOTE | 2018-06-22 17:25 | NUR ---
NO URINE AVAILABLE YET
--- NOTE | 2018-06-22 17:40 | NUR ---
PT RESTING IN BED, AT BEDSIDE, NO ACUTE DISTRESS NOTED
--- NOTE | 2018-06-22 18:06 | NUR ---
URINE COLLECTED AND SENT TO LAB
[2018-06-22 18:10] LABS: BILIRUBIN,URINE NEGATIVE (NEGATIVE); BLOOD, URINE NEGATIVE (NEGATIVE); COLOR,URINE YELLOW (YELLOW); LEUKOCYTE ESTERASE ,URINE 1+ (NEGATIVE); NITRITE, URINE POSITIVE (NEGATIVE); UGLUCOSE NEGATIVE (NEGATIVE)
[2018-06-22 18:12] LABS: APPEARANCE,URINE HAZY (CLEAR)
[2018-06-22 18:15] LABS: RBC,URINE 0-5 /HPF (0-5)
--- NOTE | 2018-06-22 19:07 | NUR ---
ASSUMED CARE OF PT FROM MARISOL FERNANDES
--- NOTE | 2018-06-22 19:07 | NUR ---
bedside report given to MARISOL Stafford
[2018-06-22] MEDS ORDERED: LEVOFLOXACIN 500 MG TAB PO ONE (20:25)
[2018-06-22] MEDS ORDERED: NACL 0.9% 1,000 ML IV ONE (21:15)
--- NOTE | 2018-06-22 21:25 | NUR ---
LAB AT BEDSIDE.
--- NOTE | 2018-06-22 21:28 | NUR ---
PROVIDED PT WITH SANDWICH. VSS. WILL CONTINUE TO MONITOR.
[2018-06-22] MEDS ORDERED: ACETAMINOPHEN 325 MG TAB PO PRN (21:35)
--- NOTE | 2018-06-22 21:45 | NUR ---
Patient will be admitted to care of DR NELSON. Admited to MED SURG. Will go to room 119-A. Belongings list completed. Report to MARISOL LOPEZ.
[2018-06-22 21:49] LABS: BASOPHILS % (AUTO) 0.8 % (0.0-2.0); EOSINOPHILS # (AUTO) 0.1 K/uL (0-0.4); EOSINOPHILS % (AUTO) 1.7 % (0.0-4.0); HEMATOCRIT 38.1 % (36-48); HEMOGLOBIN 12.4 g/dL (12.0-16.0); LYMPHOCYTES % (AUTO) 34.4 % (20.5-51.1); MEAN CORPUSCULAR HEMOGLOBIN 30 pg (27-31); MEAN CORPUSCULAR HGB CONC 32 g/dL (33-37); MEAN CORPUSCULAR VOLUME 92.6 fL (80-94); MONOCYTES # (AUTO) 0.6 K/uL (0.8-1.0); MONOCYTES % (AUTO) 10.3 % (1.7-9.3); NEUTROPHILS # (AUTO) 3.1 K/uL (1.8-7.7); NEUTROPHILS % (AUTO) 52.8 % (42.2-75.2); PLATELET COUNT (AUTO) 162 K/uL (140-450); RED BLOOD CELL COUNT(AUTO) 4.12 MIL/uL (4.20-5.40); RED CELL DISTRIBUTION WIDTH 12.8 % (11.6-13.7); WHITE BLOOD COUNT (AUTO) 5.9 K/uL (4.8-10.8)
--- NOTE | 2018-06-22 21:50 | NUR ---
RECEIVED PT FROM ER VIA ADA REPORT GIVEN AT BED SIDE PT MOBID OBESITY AAOX4 HL ON RT AC GAUGE # 20 O=PATENT, BILATERAL LOWER EXTREMITIES EDEMA 2+ HITCHCOCK CATH DRAINING WELL YELLOW URINE, FOUL SMELL , MRSA NARES PROTOCOL DONE AND ASENT TO LAB, PT IS ORIENTED TO THE FLOOR CALL LIGHT WITHIN REACH, INITIAL ASSESSMENT DONE
[2018-06-22 22:00] VITALS: BP 136/67
[2018-06-22 22:10] LABS: ALBUMIN 2.9 g/dL (3.4-5.0); ANION GAP 13.4 (8-16); CARBON DIOXIDE 24.9 mmol/L (21-32); CREATININE 1.3 mg/dL (0.6-1.3); POTASSIUM 4.3 mmol/L (3.5-5.1); TOTAL BILIRUBIN 0.3 mg/dL (0.0-1.0)
[2018-06-23] VITALS: BP 102/48
--- NOTE | 2018-06-23 | NUR ---
PT IS TRANSFER TO ROOM 120A DENIES ANY KPAIN OR DISCOMFORT IV ON LEFT AC INFUSING WELL
--- NOTE | 2018-06-23 04:00 | NUR ---
GE BATH GIVEN LINEN CHANGED PT REMAIN STBLE DENIES ANY PAIN OR DISCOMFORT NOT FEVER,
--- NOTE | 2018-06-23 07:00 | NUR ---
PT RESTING ON BED DENIES ANY PAIN HITCHCOCK CATH DRAINING WELL YELLOW URINE PT WILL BE ENDORSED TO DAY SHIFT NURSE FOR CONTINUITY OF CARE
--- NOTE | 2018-06-23 07:05 | NUR ---
RECEIVED BEDSIDE REPORT FROM RADIO MACHINIST NURSE. PATIENT IS AWAKE, ALERT AND ORIENTEDX4. NO SIGNS OF DISTRESS ON RA. SKIN IS INTACT. FALL RISK PROTOCOL IN PLACE PATIENT HAS WEAKNESS, AND S/P FALL. HITCHCOCK IN PLACE. DRAINING WELL. R AC 20G TKO AT NS AT 10. CLEAN, DRY AND INTACT. PATIENT IS MED SURGE. PATIENT IS CONTINENT. BED IN LOW POSITION. CALL LIGHT WITHIN REACH. PATIENT IS ABLE TO MAKE NEEDS KNOWN. WILL CONTINUE TO MONITOR
[2018-06-23 08:00] VITALS: BP 112/54
--- NOTE | 2018-06-23 08:29 | NUR ---
PATIENT HAS BEEN SCREENED AND CATEGORIZED HIGH NUTRITION RISK. PATIENT WILL BE SEEN WITHIN 1-2 DAYS OF ADMISSION. 06/23/18-06/24/[address]
[2018-06-23] MEDS ORDERED: HYDROcodone/APAP 10/325 MG 1 TAB TAB PO PRN (09:40)
[2018-06-23] MEDS ORDERED: ALPRAZolam 0.5 MG TAB PO PRN (09:40)
--- NOTE | 2018-06-23 09:50 | NUR ---
DR NELSON SAID PATIENT CAN LEAVE IF CLEARED BY PT. TOLD DR NELSON THAT PATIENT ONLY ABLE TO TAKE A FEW SIDE STEPS. DR NELSON AWARE
--- NOTE | 2018-06-23 10:02 | NUR ---
PATIENT COMPLAINING OF ANNELISE KNEE PAIN. ADMINISTERED PRN PAIN MED. EDUCATED ON SIDE EFFECTS OF THE MED. WILL CONTINUE TO MONITOR THE PATIENT
--- NOTE | 2018-06-23 10:50 | NUR ---
REMOVED HITCHCOCK CATHETER DR NELSON ORDERED. TIP IS INTACT. PATIENT TOLERATED WELL
--- NOTE | 2018-06-23 11:39 | NUR ---
PATIENT WITH TWINE REELING MACHINE OPERATOR AT THIS TIME. NO SIGNS OF DISTRESS. WILL CONTINUE TO MONITOR
--- NOTE | 2018-06-23 12:55 | NUR ---
CALLED MARISSA AT [facility], [employer], ABOUT THE HOME HEALTH FOR P.T. SHE SAID THAT THE ORDER WILL GO TO [facility]. I CALLED [facility] AND SPOKE WITH GUILLAUME [phone], [phone]. SHE SAID SHE WOULD ARRANGE THE HOME HEALTH, JUST SEND THE ORDER AND P.T. NOTES TO [phone]. WAITING FOR P.T. NOTES TO FAX TO [facility].
[2018-06-23] MEDS ORDERED: DIVALPROEX 500 MG TABEC PO SCH (13:00)
--- NOTE | 2018-06-23 13:28 | NUR ---
ADMINISTERED MED GUTIERREZ. PATIENT TOLERATED WELL. EDUCATED ON SIDE EFFECTS. PATIENT VERBALIZED UNDERSTANDING
--- NOTE | 2018-06-23 13:55 | NUR ---
06/23/18 RD INITIAL ASSESSMENT COMPLETED PLEASE REFER TO NUTRITION ASSESSMENT UNDER CARE ACTIVITY FOR ESTIMATED NUTRITIONAL NEEDS. 1. CONTINUE REGULAR DIET TOLERATED 2. RECOMMEND MULTIVITAMIN WITH IRON, VITAMIN C, VITAMIN D, B 12 AND B COMPLEX 3. RECOMMEND ENSURE MAX TID 4. RD TO FOLLOW-UP 3-5 DAYS, MODERATE RISK AN[address]EL [address]
--- NOTE | 2018-06-23 14:00 | NUR ---
FAXED ORDER, FACE SHEET, H&P, AND P.T. NOTES TO GUILLAUME AT [phone] FOR HOME HEALTH P.T. PHONE [phone]
--- NOTE | 2018-06-23 15:00 | NUR ---
PATIENT LAYING IN BED, SHE SAID HER WILL PICK HER UP AROUND 1600. NO SIGNS OF DISTRESS. WILL CONTINUE TO MONITOR
--- NOTE | 2018-06-23 15:15 | NUR ---
SPOKE WITH GUILLAUME FROM [facility]. SHE ARRANGED HOME HEALTH FOR P.T. WITH [facility],
[2018-06-23] MEDS ORDERED: LEVO750T2 PO (16:17)
--- NOTE | 2018-06-23 16:55 | NUR ---
PATIENT URINATED IN BED. CLEANSED PATIENT. EDUCATED PATIENT ON DISEASE PROCESS, ABN S/SX, FOLLOW UP W PCP, EDUCATED ON MEDS, GAVE PRESCRIPTIONS, EDUCATED ON FALL RISK PREVENTION AT HOME, EDUCATED ON AGAPE FOLLOW UP HOME HEALTH AND GAVE THE NUMBER [id number]. PATIENT AND VERBALIZED UNDERSTANDING AND SIGNED PAPERWORK. PATIENT HAS PNA AND FLU VACCINE UP TO DATE. PATIENT DRESSED, IV REMOVED, TIP INTACT. ID BANDS REMOVED. PATIENT TRANSFERRED BED TO WHEELCHAIR W 2 PERSON ASSIST, AND TRANSFERRED TO WHEELCHAIR TO CAR. PATIENT SAID THEY WILL CALL THE FIRE DEPARTMENT TO HELP ASSIST PATIENT IN HOME. PATIENT LEFT IN STABLE CONDITION
[2018-06-23] MEDS ORDERED: LEVOFLOXACIN 250 MG TAB PO SCH (21:00)
[2018-06-23] MEDS ORDERED: FLUoxetine 20 MG CAP PO SCH (21:00)
[2018-06-23] MEDS ORDERED: BACLOFEN 10 MG TAB PO SCH (21:00)
[2018-06-23] MEDS ORDERED: PREGABALIN 50 MG CAP PO SCH (21:00)
[2018-06-23] MEDS ORDERED: buPROPion 75 MG TAB PO SCH (21:00)
[2018-06-24] MEDS ORDERED: ASPIRIN 81 MG TAB.CHEW PO SCH (09:00)
[2018-06-24] MEDS ORDERED: ARIPiprazole 10 MG TAB PO SCH (09:00)
[2018-06-24] MEDS ORDERED: CALCIUM CARB 600 MG TAB PO SCH (09:00)
== END 2018-06-23 16:55 | disposition home health service (06) | DRG 690 ==
LOC: MED 14:39 → MTU 21:21
PROVIDERS: ADMIT Internal Medicine; ATTEND Internal Medicine
DX: N39.0 Urinary tract infection, site not specified (principal); Z68.43 Body mass index [BMI] 50.0-59.9, adult; E44.1 Mild protein-calorie malnutrition; E66.01 Morbid (severe) obesity due to excess calories; M79.7 Fibromyalgia; F31.9 Bipolar disorder, unspecified; I12.9 Hypertensive chronic kidney disease with stage 1 through stage 4 chronic kidney disease, or unspecified chronic kidney disease; E11.22 Type 2 diabetes mellitus with diabetic chronic kidney disease; S80.02XA Contusion of left knee, initial encounter; S80.01XA Contusion of right knee, initial encounter; W18.30XA Fall on same level, unspecified, initial encounter; M17.0 Bilateral primary osteoarthritis of knee; N18.3 Chronic kidney disease, stage 3 (moderate); Z88.8 Allergy status to other drugs, medicaments and biological substances; Z91.030 Bee allergy status; Z79.899 Other long term (current) drug therapy; Y93.89 Activity, other specified; Y92.89 Other specified places as the place of occurrence of the external cause; Y99.8 Other external cause status; Z79.84 Long term (current) use of oral hypoglycemic drugs
CPT/HCPCS: 36415; 51702; 73560; 80053; 81001; 85025; 87040; 87081; 87086; 87186; 97116; 97530; 99285; G0378; Q0092

== ENCOUNTER 2022-04-04 22:12 | Inpatient (IN) | payer OTHER, MEDICAID ==
[~2022-04-04] VITALS: Ht 170.2 cm; Wt 147.4 kg
[~2022-04-04 22:12] MED LIST changes: -BUPR150T22 PO; +BUPR150T41 PO; +DIVA500T37 PO; -DIVA500T47 PO; +LEVO750T2 PO; +TRAM-748 PO; -TRAM50TA1 PO
[2022-04-04 22:15] VITALS: BP 105/66
--- NOTE | 2022-04-04 22:17 | NUR ---
PT KINGSLEY ALS. TAKEN TO BED 12
--- NOTE | 2022-04-04 22:30 | NUR ---
Patient being evaluated by physician at bedside.
[2022-04-04] MEDS ORDERED: NACL 0.9% 3,000 ML IV ONE (22:35)
--- NOTE | 2022-04-04 22:35 | NUR ---
RAD AT BEDSIDE
--- NOTE | 2022-04-04 22:35 | NUR ---
LAB AT BEDSIDE
--- NOTE | 2022-04-04 22:39 | NUR ---
PATIENT SWABBED AND HANDED TO LAB
[2022-04-04 22:43] LABS: BASOPHILS # (AUTO) 0.1 K/uL (0.00-0.22); BASOPHILS % (AUTO) 0.4 % (0.0-2.0); HEMATOCRIT 39.4 % (36-48); HEMOGLOBIN 12.8 g/dL (12.0-16.0); LYMPHOCYTES # (AUTO) 0.9 K/uL (2.5-16.5); LYMPHOCYTES % (AUTO) 5.6 % (20.5-51.1); MEAN CORPUSCULAR HEMOGLOBIN 31 pg (27-31); MEAN CORPUSCULAR HGB CONC 33 g/dL (33-37); MEAN CORPUSCULAR VOLUME 95.5 fL (80-94); MONOCYTES # (AUTO) 2.3 K/uL (0.8-1.0); MONOCYTES % (AUTO) 14.2 % (1.7-9.3); NEUTROPHILS % (AUTO) 79.8 % (42.2-75.2); PLATELET COUNT (AUTO) 131 K/uL (140-450); RED BLOOD CELL COUNT(AUTO) 4.12 MIL/uL (4.20-5.40); RED CELL DISTRIBUTION WIDTH 13.5 % (11.6-13.7); WHITE BLOOD COUNT (AUTO) 16.2 K/uL (4.8-10.8)
[2022-04-04] MEDS ORDERED: cefTRIAXone 1,000 MG VIAL ONE (22:44)
[2022-04-04 23:02] LABS: PROTHROMBIN TIME 10.9 secs (10.8-13.4)
[2022-04-04 23:05] LABS: ALBUMIN 2.2 g/dL (3.4-5.0); ANION GAP 12.8 (8-16); CARBON DIOXIDE 25.7 mmol/L (21-32); CREATININE 1.3 mg/dL (0.6-1.3); POTASSIUM 4.5 mmol/L (3.5-5.1); TOTAL BILIRUBIN 0.4 mg/dL (0.0-1.0)
[2022-04-04 23:20] LABS: RSV NEGATIVE (NEGATIVE)
--- NOTE | 2022-04-04 23:30 | NUR ---
#16 FR Proctor catheter with 10 ml utilizing sterile technique. Immediate return return of 50 mL yellow urine noted. Bedside drainage bag placed below level of bladder. Pt tolerated procedure.
--- NOTE | 2022-04-04 23:56 | NUR ---
Spoke with Asha Roy ([phone]) and notified of patient admission. Per , patient has a history of kidney disease and bipolar disease. unable to recall medications that patient takes.
[2022-04-05 00:04] LABS: APPEARANCE,URINE CLOUDY (CLEAR); BILIRUBIN,URINE NEGATIVE (NEGATIVE); BLOOD, URINE TRACE-I (NEGATIVE); COLOR,URINE YELLOW (YELLOW); LEUKOCYTE ESTERASE ,URINE 1+ (NEGATIVE); NITRITE, URINE NEGATIVE (NEGATIVE); UGLUCOSE NEGATIVE (NEGATIVE)
[2022-04-05] MEDS ORDERED: KETOROLAC 30 MG/ML VIAL IVP ONE (00:05)
--- NOTE | 2022-04-05 00:05 | NUR ---
Pt noted with chills, temp 102.3. Notified ER Dr. Harrison and orders received for toradol and IV fluids.
[2022-04-05 00:09] LABS: RBC,URINE 0-5 /HPF (0-5)
[2022-04-05] MEDS ORDERED: MORPHINE SULFATE 4 MG/ML SYR IVP PRN (00:15)
[2022-04-05] MEDS ORDERED: ONDANSETRON 4 MG/2 ML VIAL IVP PRN (00:15)
[2022-04-05] MEDS ORDERED: ACETAMINOPHEN 325 MG TAB PO PRN (00:15)
[2022-04-05] MEDS ORDERED: NACL 0.9% 1,000 ML IV ONE (00:20)
--- NOTE | 2022-04-05 00:46 | NUR ---
PT RETURN FROM CT
[2022-04-05] MEDS ORDERED: AZITHROMYCIN 500 MG INJ VIAL IV ONE (01:32)
[2022-04-05] MEDS: LACTATED RINGERS 1,000 ML IV SCH ×2 (01:40→13:23)
[2022-04-05] MEDS: AZITHROMYCIN 500 MG in DEXTROSE 5% 250 ML IV SCH (01:40)
--- NOTE | 2022-04-05 01:53 | NUR ---
Report given to Praneeth DAMON for transfer of care
--- NOTE | 2022-04-05 01:53 | NUR ---
Patient will be admitted to care of Dr. Ceron. Admitted to telemetry. Will go to room 12. Belongings list completed. Report to Praneeth DAMON.
[2022-04-05 02:15] VITALS: BP 111/68
--- NOTE | 2022-04-05 02:20 | NUR ---
RECEIVED REPORT FROM ER, PT ARRIVED VIA GURNEY.PT AWAKE, ALERT AND ORIENTED X 4,BEDBOUND. ON 2L O2 VIA NC, BREATHING EQUAL AND UNLABORED.IV ON L HAND G20, INFUSING ANTIBIOTICS PER MD ORDER. SKIN IS INTACT. MRSA SWAB DONE. ORIENTED TO ROOM AND CALL LIGHT. BED IS IN LOW LOCKED POSITION. ALL PRECAUTIONS IN PLACE. CALL LIGHT WITHIN REACH. WILL CONTINUE TO MONITOR.
[2022-04-05 04:00] VITALS: BP 111/68
--- NOTE | 2022-04-05 06:36 | NUR ---
PT IS STABLE. NO ACUTE EVENTS THROUGHOUT THE NIGHT.NO S/SX OF DISTRESS NOTED. ALL NEEDS ATTENDED. DENIES PAIN AT THIS TIME. ALL PRECAUTIONS IN PLACE. CALL LIGHT WITHIN REACH. WILL ENDORSE TO AM SHIFT NURSE.
[2022-04-05 08:00] VITALS: BP 138/102
--- NOTE | 2022-04-05 09:00 | NUR ---
RECEIVED IN BED AWAKE A/OX2-3 PT TEMP 100.6 MD MADE AWARE OF TEMP AND MADE AWARE OF HOME MEDS NEEDED TO BE RECONCILED ASSESSMENT COMPLETED TYLEONL GIVEN FOR TEMP AND COOLING MEASURES APPLIED WILL CONTINUE TO MONITOR AND ASSESS CALL LIGHT IN REACH
--- NOTE | 2022-04-05 10:31 | NUR ---
PATIENT HAS BEEN SCREENED AND CATEGORIZED MODERATE NUTRITION RISK. PATIENT WILL BE SEEN WITHIN 3-5 DAYS OF ADMISSION. REVIEWED BY FABIAN LEVINE RD
[2022-04-05 12:00] VITALS: BP 120/83
[2022-04-05] MEDS ORDERED: NACL 0.9% 500 ML IV SCH (14:35)
[2022-04-05 16:00] VITALS: BP 126/79
[2022-04-05] MEDS: HYDROcodone/APAP 5/325 MG 1 TAB TAB PO PRN ×2 (16:34→23:03)
--- NOTE | 2022-04-05 16:34 | NUR ---
PT SHAKING AND ENDORSES PAIN GENERAL BODY 09/15 NORCO GIVEN IRDERED
--- NOTE | 2022-04-05 18:54 | NUR ---
ALL NEEDS ANTICIPATED AND MET PT ENDORSES NO PAIN AT THIS TIME
--- NOTE | 2022-04-05 19:15 | NUR ---
RECEIVED BEDSIDE REPORT FROM DAY SHIFT RN FOR CONTINUITY OF CARE. PT IS AAOX4. PT IS ON 2L NC. PT HAS PUREWICK ON. PT HAS LEFT HAND 20 GAUGE ON LR 80 CC/HR. PT HAS NO COMPLAINS AT THIS TIME. PT NOT IN ANY RESPIRATORY DISTRESS. WILL CONTINUE TO MONITOR THE PT.
[2022-04-05 20:00] VITALS: BP 105/58
--- NOTE | 2022-04-05 21:08 | NUR ---
SCHEDULE MEDICATION GIVEN. NO ADVERSE REACTION NOTED. WILL CONTINUE TO MONITOR THE PT.
--- NOTE | 2022-04-05 23:05 | NUR ---
PT COMPLAIN OF PAIN ALL OVER BODY AND VERNON. NORCO WAS GIVEN. PER MD ORDER. NO OTHER COMPLAINS. WILL CONTINUE TO MONITOR THE PT.
[2022-04-06] VITALS: BP 117/73
[2022-04-06] MEDS: AZITHROMYCIN 500 MG in DEXTROSE 5% 250 ML IV SCH (00:16)
--- NOTE | 2022-04-06 00:16 | NUR ---
SCHEDULE MEDICATION GIVEN. NO ADVERSE REACTION NOTED. WILL CONTINUE TO MONITOR THE PT.
[2022-04-06] MEDS: LACTATED RINGERS 1,000 ML IV SCH ×2 (01:15→03:31)
[2022-04-06] MEDS: HYDROcodone/APAP 5/325 MG 1 TAB TAB PO PRN (03:29)
--- NOTE | 2022-04-06 03:29 | NUR ---
PT COMPLAINED OF GENERALIZED PAIN. NORCO GIVEN PER MD ORDER. NO OTHER COMPLAINS. WILL CONTINUE TO MONITOR THE PT.
[2022-04-06 04:00] VITALS: BP 126/61
[2022-04-06 05:49] LABS: BASOPHILS % (AUTO) 0.2 % (0.0-2.0); HEMATOCRIT 34.6 % (36-48); HEMOGLOBIN 11.5 g/dL (12.0-16.0); LYMPHOCYTES # (AUTO) 1.1 K/uL (2.5-16.5); LYMPHOCYTES % (AUTO) 7.8 % (20.5-51.1); MEAN CORPUSCULAR HEMOGLOBIN 32 pg (27-31); MEAN CORPUSCULAR HGB CONC 33 g/dL (33-37); MEAN CORPUSCULAR VOLUME 95.4 fL (80-94); MONOCYTES % (AUTO) 14.3 % (1.7-9.3); NEUTROPHILS # (AUTO) 10.7 K/uL (1.8-7.7); NEUTROPHILS % (AUTO) 77.7 % (42.2-75.2); PLATELET COUNT (AUTO) 103 K/uL (140-450); RED BLOOD CELL COUNT(AUTO) 3.63 MIL/uL (4.20-5.40); RED CELL DISTRIBUTION WIDTH 13.4 % (11.6-13.7); WHITE BLOOD COUNT (AUTO) 13.7 K/uL (4.8-10.8)
[2022-04-06 06:30] LABS: ANION GAP 9.6 (8-16); CARBON DIOXIDE 25.5 mmol/L (21-32); CREATININE 1.1 mg/dL (0.6-1.3); POTASSIUM 4.1 mmol/L (3.5-5.1)
[2022-04-06 06:31] LABS: MAGNESIUM 1.6 mg/dL (1.8-2.4); PHOSPHORUS 3.5 mg/dL (2.5-4.9)
--- NOTE | 2022-04-06 07:20 | NUR ---
ENDORSED PT TO DAY SHIFT RN FOR CONTINUITY OF CARE. PT IS STABLE.
[2022-04-06 08:00] VITALS: BP 146/81
--- NOTE | 2022-04-06 09:12 | NUR ---
RECEIVED IN BED ASSESSMENT COMPLETED PLAN OF CARE REVIEWED CONDITION GUARDED WILL CONTINUE TO MONITOR AND ASSESS CALL LIGHT IN REACH PT ORIENTED TO ROOM AND PLAN OF CARE
[2022-04-06] MEDS: PREGABALIN 50 MG CAP PO SCH ×3 (09:24→16:41)
[2022-04-06] MEDS: ECOTRIN 81 MG TABEC PO SCH (09:24)
[2022-04-06] MEDS: DIVALPROEX 250 MG TABEC PO SCH ×3 (09:24→16:40)
[2022-04-06] MEDS: ARIPiprazole 10 MG TAB PO SCH (09:25)
[2022-04-06] MEDS: buPROPion 150 MG TABER PO SCH ×3 (09:25→16:43)
[2022-04-06] MEDS: BACLOFEN 10 MG TAB PO SCH ×2 (09:26→20:55)
--- NOTE | 2022-04-06 09:46 | NUR ---
MAG 1.6 MRSA NARES POSITIVE MADE AWARE
[2022-04-06 12:00] VITALS: BP 146/71
[2022-04-06 16:00] VITALS: BP 108/90
--- NOTE | 2022-04-06 19:30 | NUR ---
RECEIVED BEDSIDE REPORT FROM DAY SHIFT RN FOR CONTINUITY OF CARE. PT IS ALERT AND ORIENTATED. PT IS ON 2L NC. PT HAS PUREWICK ON. PT HAS LEFT HAND 20 GAUGE. PT HAS NO COMPLAINS AT THIS TIME. PT NOT IN ANY RESPIRATORY DISTRESS. WILL CONTINUE TO MONITOR THE PT.
[2022-04-06 20:00] VITALS: BP 132/69
[2022-04-06] MEDS ORDERED: CHLORHEXADINE GLUC 2% CLOTH TP SCH (20:00)
[2022-04-06] MEDS ORDERED: MUPIROCIN CA NASAL 2% 1GM TUBE NS SCH (20:00)
--- NOTE | 2022-04-06 21:03 | NUR ---
SCHEDULE MEDICATION GIVEN. BACTROBAN GIVEN AND PT WIPED DOWN WITH CHLORHEXIDINE WIPE.
--- NOTE | 2022-04-06 23:55 | NUR ---
OBSERVED PT. PT IS SLEEPING COMFORTABLY IN BED. PT NOT IN ANY RESPIRATORY DISTRESS. CALL LIGHT WITHIN REACH. WILL CONTINUE TO MONITOR THE PT.
[2022-04-07] VITALS: BP 132/72
[2022-04-07] MEDS: AZITHROMYCIN 500 MG in DEXTROSE 5% 250 ML IV SCH (01:00)
[2022-04-07] MEDS ORDERED: Z-GUARD PASTE TP PRN (01:55)
[2022-04-07] MEDS: LACTATED RINGERS 1,000 ML IV SCH ×2 (02:15→08:38)
--- NOTE | 2022-04-07 02:50 | NUR ---
OBSERVED PT. PT IS SLEEPING COMFORTABLY IN BED. PT NOT IN ANY RESPIRATORY DISTRESS. CALL LIGHT WITHIN REACH. WILL CONTINUE TO MONITOR THE PT.
[2022-04-07 04:00] VITALS: BP 136/71
--- NOTE | 2022-04-07 04:10 | NUR ---
PT WAS CLEANED AND CHANGED. TOLERATED IT WELL. WILL CONTINUE TO MONITOR THE PT.
[2022-04-07 05:27] LABS: BASOPHILS % (AUTO) 0.2 % (0.0-2.0); EOSINOPHILS % (AUTO) 0.3 % (0.0-4.0); HEMATOCRIT 33.6 % (36-48); HEMOGLOBIN 11.1 g/dL (12.0-16.0); LYMPHOCYTES # (AUTO) 1.2 K/uL (2.5-16.5); LYMPHOCYTES % (AUTO) 11.9 % (20.5-51.1); MEAN CORPUSCULAR HEMOGLOBIN 32 pg (27-31); MEAN CORPUSCULAR HGB CONC 33 g/dL (33-37); MONOCYTES # (AUTO) 1.4 K/uL (0.8-1.0); MONOCYTES % (AUTO) 14.2 % (1.7-9.3); NEUTROPHILS # (AUTO) 7.2 K/uL (1.8-7.7); NEUTROPHILS % (AUTO) 73.4 % (42.2-75.2); PLATELET COUNT (AUTO) 113 K/uL (140-450); RED BLOOD CELL COUNT(AUTO) 3.53 MIL/uL (4.20-5.40); RED CELL DISTRIBUTION WIDTH 13.3 % (11.6-13.7); WHITE BLOOD COUNT (AUTO) 9.9 K/uL (4.8-10.8)
[2022-04-07 05:31] LABS: ANION GAP 7.3 (8-16); CREATININE 1.1 mg/dL (0.6-1.3); MAGNESIUM 1.6 mg/dL (1.8-2.4); PHOSPHORUS 3.1 mg/dL (2.5-4.9); POTASSIUM 4.3 mmol/L (3.5-5.1)
--- NOTE | 2022-04-07 07:23 | NUR ---
ENDORSED PT TO DAY SHIFT RN FOR CONTINUITY OF CARE. PT IS STABLE.
--- NOTE | 2022-04-07 07:30 | NUR ---
RECEIVED BEDSIDE REPORT FROM FRUIT GROWER RN FOR CONTINUITY OF CARE. PT IS AAOX4. PT IS ON 2L NC. PT HAS PUREWICK ON. PT HAS LEFT HAND 20 GAUGE ON LR 80 CC/HR. PT HAS NO COMPLAINTS AT THIS TIME. PT NOT IN ANY RESPIRATORY DISTRESS. WILL CONTINUE TO MONITOR THE PT.
[2022-04-07 08:00] VITALS: BP 132/72
[2022-04-07] MEDS: ARIPiprazole 10 MG TAB PO SCH (08:37)
[2022-04-07] MEDS: ECOTRIN 81 MG TABEC PO SCH (08:37)
[2022-04-07] MEDS: PREGABALIN 50 MG CAP PO SCH ×2 (08:38→13:15)
[2022-04-07] MEDS: DIVALPROEX 250 MG TABEC PO SCH ×2 (08:38→13:15)
[2022-04-07] MEDS: buPROPion 150 MG TABER PO SCH ×2 (08:38→13:15)
[2022-04-07] MEDS: BACLOFEN 10 MG TAB PO SCH (08:38)
[2022-04-07 12:00] VITALS: BP 126/63
[2022-04-07] MEDS ORDERED: CEFD300C3 PO (14:02)
--- NOTE | 2022-04-07 14:27 | NUR ---
RN ARRANGED GURNEY TRANSPORT TO PATIENTS RESIDENCE WITH [facility] ([phone]) AND CONFIRMED THE ADDRESS WITH HER NANI. PROTECTIVE SIGNAL REPAIRER TIME 1445, ABOVE ENDORSED TO THE PATIENTS NURSE LYRIC.
--- NOTE | 2022-04-07 14:30 | NUR ---
Patient discharged with v/s stable. Written and verbal after care instructions given and explained. Patient alert, oriented and verbalized understanding of instructions. Ambulance Transport to home. All questions addressed prior to discharge. ID band removed. Patient advised to follow up with PMD. Rx given. Patient educated on indication of medication including possible reaction and side effects. Opportunity to ask questions provided and answered.
== END 2022-04-07 15:18 | disposition home or self-care (01) | DRG 872 ==
LOC: MED 22:12 → MTU 04-05 00:16 → MMU 04-05 01:41
PROVIDERS: ADMIT Hospitalist; ATTEND Hospitalist
DX: A41.9 Sepsis, unspecified organism (principal); N39.0 Urinary tract infection, site not specified; Z68.43 Body mass index [BMI] 50.0-59.9, adult; Z20.822 Contact with and (suspected) exposure to COVID-19; I12.9 Hypertensive chronic kidney disease with stage 1 through stage 4 chronic kidney disease, or unspecified chronic kidney disease; N18.30 Chronic kidney disease, stage 3 unspecified; E66.01 Morbid (severe) obesity due to excess calories; F31.9 Bipolar disorder, unspecified; Z88.8 Allergy status to other drugs, medicaments and biological substances; Z91.030 Bee allergy status; Z79.899 Other long term (current) drug therapy; Z79.82 Long term (current) use of aspirin; Z79.1 Long term (current) use of non-steroidal anti-inflammatories (NSAID)
CPT/HCPCS: 36415; 71045; 80048; 80053; 81001; 82550; 82553; 83605; 83735; 83874; 83880; 84100; 84484; 85025; 85610; 85730; 87040; 87081; 87086; 87420; 96365; 96375; 99285; J0456; J0696; J1644; J1885; J7060; Q0092

== ENCOUNTER 2022-04-21 10:49 | Inpatient (IN) | payer OTHER, MEDICAID ==
[~2022-04-21] VITALS: Ht 162.6 cm; Wt 158.8 kg
[~2022-04-21 10:49] MED LIST changes: -ABI10 PO; -BACL10TA4 PO; -BUPR150T41 PO; -BUSP30TA2 PO; +CEFD300C3 PO; -D50SYR IVP; -FLUO40CA6 PO; -LEVO750T2 PO; -ROC2I IV; -[UNRECOGNIZED DRUG - CODE] PO
[2022-04-21 10:58] VITALS: BP 133/76
[2022-04-21] MEDS ORDERED: NACL 0.9% 500 ML IV SCH (11:05)
[2022-04-21] MEDS ORDERED: cefTRIAXone 1,000 MG in DEXT 5% MINI-BAG PLUS 50 ML IV ONE (11:05)
[2022-04-21] MEDS ORDERED: cefTRIAXone 1,000 MG VIAL ONE ×2 (11:41→18:17)
[2022-04-21 11:44] LABS: HEMATOCRIT 37.9 % (36-48); HEMOGLOBIN 12.7 g/dL (12.0-16.0); MEAN CORPUSCULAR HEMOGLOBIN 31 pg (27-31); MEAN CORPUSCULAR HGB CONC 34 g/dL (33-37); MEAN CORPUSCULAR VOLUME 92.6 fL (80-94); PLATELET COUNT (AUTO) 186 K/uL (140-450); RED CELL DISTRIBUTION WIDTH 13.3 % (11.6-13.7); WHITE BLOOD COUNT (AUTO) 15.4 K/uL (4.8-10.8)
[2022-04-21] MEDS ORDERED: NACL 0.9% 1,000 ML IV ONE ×2 (12:00→14:15)
[2022-04-21] MEDS ORDERED: ACETAMINOPHEN 325 MG TAB PO ONE (12:00)
[2022-04-21 12:09] LABS: ALBUMIN 3.3 g/dL (3.4-5.0); ANION GAP 11.8 (8-16); CARBON DIOXIDE 29.6 mmol/L (21-32); CREATININE 1.3 mg/dL (0.6-1.3); POTASSIUM 4.4 mmol/L (3.5-5.1); TOTAL BILIRUBIN 0.4 mg/dL (0.0-1.0)
--- NOTE | 2022-04-21 12:36 | NUR ---
Pt bib ems for fever and confusion. Pt has history of repeated uti's, family reports these symptoms as similar. Pt is a/o x 2 (alert to person and time only). Speech is clear, no ss of acute distress, breathing equal and unlabored, IV placed by ems (flushing well). MD has seen pt. Medicated as ordered, tolerating well.
--- NOTE | 2022-04-21 13:41 | NUR ---
Straight cath used to obtain UA, as ordered by . UA specimen labeled and walked to lab.
[2022-04-21 14:38] LABS: APPEARANCE,URINE CLEAR (CLEAR); BILIRUBIN,URINE NEGATIVE (NEGATIVE); BLOOD, URINE TRACE-I (NEGATIVE); COLOR,URINE YELLOW (YELLOW); LEUKOCYTE ESTERASE ,URINE 1+ (NEGATIVE); NITRITE, URINE POSITIVE (NEGATIVE); UGLUCOSE NEGATIVE (NEGATIVE)
--- NOTE | 2022-04-21 15:00 | NUR ---
BP readings not working on room monitor. Portable bp being used to check.
[2022-04-21 15:16] LABS: LYMPHOCYTES % (MANUAL) 7 % (20-46); MONOCYTES % (MANUAL) 8 % (5-12)
[2022-04-21 15:22] LABS: TRICHOMONAS,URINE None Seen /HPF (None Seen); YEAST,URINE None Seen /HPF (None Seen)
[2022-04-21] MEDS ORDERED: ONDANSETRON 4 MG/2 ML VIAL IVP PRN (15:45)
[2022-04-21] MEDS ORDERED: MORPHINE SULFATE 2 MG/ML SYR IVP PRN (15:45)
--- NOTE | 2022-04-21 17:09 | NUR ---
Asha called to [facility] med rec information. nor able to help as she does not know, nor does she know the pts meds on her own. Pt is unable to answer any medication questions.
[2022-04-21] MEDS: NACL 0.9% 1,000 ML IV SCH (18:23)
--- NOTE | 2022-04-21 19:29 | NUR ---
pt is confused. She is talking to her self. nasal canual 2, no respiratory distress noted.
[2022-04-21] MEDS: ACETAMINOPHEN 325 MG TAB PO PRN (20:25)
--- NOTE | 2022-04-22 | NUR ---
pt is awake and asking for tylenol since she has pain related to her fibromylagia.
--- NOTE | 2022-04-22 | NUR ---
TYLENOL 650 MG GIVEN@ 2252 FOR FRONTAL HEADACHE EFFECTIVE.
[2022-04-22] MEDS: ACETAMINOPHEN 325 MG TAB PO PRN ×3 (01:00→22:52)
[2022-04-22] MEDS: NACL 0.9% 1,000 ML IV SCH ×4 (02:31→22:43)
--- NOTE | 2022-04-22 07:10 | NUR ---
PT RECEIVED, CARE ASSUMED. PT LAYING IN BED ASLEEP. NO ACUTE DISTRESS, NOTED V/S. WILL CONTINUE TO MONITOR
[2022-04-22 07:25] LABS: BASOPHILS # (AUTO) 0.1 K/uL (0.00-0.22); BASOPHILS % (AUTO) 0.4 % (0.0-2.0); HEMATOCRIT 33.8 % (36-48); HEMOGLOBIN 11.4 g/dL (12.0-16.0); LYMPHOCYTES # (AUTO) 1.2 K/uL (2.5-16.5); MEAN CORPUSCULAR HEMOGLOBIN 31 pg (27-31); MEAN CORPUSCULAR HGB CONC 34 g/dL (33-37); MEAN CORPUSCULAR VOLUME 92.5 fL (80-94); MONOCYTES # (AUTO) 1.6 K/uL (0.8-1.0); NEUTROPHILS # (AUTO) 9.9 K/uL (1.8-7.7); PLATELET COUNT (AUTO) 141 K/uL (140-450); RED BLOOD CELL COUNT(AUTO) 3.65 MIL/uL (4.20-5.40); RED CELL DISTRIBUTION WIDTH 13.2 % (11.6-13.7); WHITE BLOOD COUNT (AUTO) 12.8 K/uL (4.8-10.8)
--- NOTE | 2022-04-22 08:00 | NUR ---
Patient will be admitted to care of . Admited to TELE. Will go to room 115. Belongings list completed. Report to .
[2022-04-22 08:05] VITALS: BP 114/67
--- NOTE | 2022-04-22 08:05 | NUR ---
RECEIVED REPORT ON PT FROM ER NURSE BRANDON FOR CONTINUITY OF CARE. PT STABLE ON TRANSPORT. A&OX3, SKIN INTACT, ON ROOM AIR, BEDBOUND, AND IS CONTINENT OF BOWEL AND BLADDER. PT HAS A PERIWICK IN PLACE. SHE HAS A 22G IN HER L HAND AND A 20G IN LAC THAT ARE SALINE LOCKED. ALL SAFETY MEASURES IN PLACE AND CALL LIGHT WITHIN REACH. WILL CONTINUE TO MONITOR.
[2022-04-22 08:12] LABS: ALBUMIN 2.7 g/dL (3.4-5.0); ANION GAP 12.2 (8-16); CARBON DIOXIDE 26.1 mmol/L (21-32); MAGNESIUM 1.6 mg/dL (1.8-2.4); POTASSIUM 4.3 mmol/L (3.5-5.1); TOTAL BILIRUBIN 0.4 mg/dL (0.0-1.0)
[2022-04-22 08:20] LABS: LYMPHOCYTES % (AUTO) 9.3 % (20.5-51.1); MONOCYTES % (AUTO) 12.8 % (1.7-9.3); NEUTROPHILS % (AUTO) 77.5 % (42.2-75.2)
--- NOTE | 2022-04-22 09:07 | NUR ---
PATIENT HAS BEEN SCREENED AND CATEGORIZED LOW NUTRITION RISK. PATIENT WILL BE SEEN WITHIN 7 DAYS OF ADMISSION. 04/21/22-04/28/[address]
[2022-04-22 12:00] VITALS: BP 149/74
[2022-04-22] MEDS ORDERED: MAG SULF 2000 MG/WATER PREMIX 50 ML IV PRN (12:05)
[2022-04-22 16:00] VITALS: BP 149/80
--- NOTE | 2022-04-22 19:25 | NUR ---
ENDORSED PT TO TECHNICIAN AUTOMATED EQUIPMENT FOR CONTINUITY OF CARE. PT STABLE.
--- NOTE | 2022-04-22 19:30 | NUR ---
RECEIVED FROM ADITYA DAMON FOR CONTINUITY OF CARE: PUREWICK IN PLACE AND MAY NEED FREQUENT ADJUSTING TO GET OPTIMUM SPOT;MAINTAIN DROPLET ISOLATION; BEDBOUND AND TURNS WELL TO LEFT SIDE WITH ONE ASSIST; SUPPORTIVE; MAG 1.6 AND COVERED WITH 2 GRAM RIDER; 20GA LAC "LEAKS" SOMETIMES. 20 GA IN L HAND WITH NS 125 ML/H SKIN INTACT. RECEIVED LAYING IN BED. A/OX4. PUREWICK TO LOW SUCTION. MONITOR AND ASSIST.
--- NOTE | 2022-04-22 19:30 | NUR ---
ENDORSED FROM ADITYA DAMON FOR CONTINUITY OF CARE. TURNS WELL WITH ASSIST OF ONE. POSITIONAL LEFT HAND IV. FAIR DAY. RECEIVED IN BED A/0X4. DENIES PAIN. PURE WICK WITH LOW TO NO SUCTION. CONTINUE TO ADJUST. BRIGHT YELLOW CLOUDY URINE.
[2022-04-22 20:00] VITALS: BP 143/78
[2022-04-22] MEDS: OSELTAMIVIR PHOSPHATE 75 MG CAP PO SCH (21:00)
--- NOTE | 2022-04-22 22:57 | NUR ---
TYLENOL 650 MG FOR FRONTAL HEADACHE
[2022-04-23] VITALS: BP 137/82
--- NOTE | 2022-04-23 01:00 | NUR ---
LARGE SOFT MUSHY STOOL. DEEP DIANNE-CARE AND BED CHANGE. TWO ASSIST. MEDICATED WITH ATIVAN 1MG FOR RESTLESSNESS
[2022-04-23] MEDS: LORazepam 2 MG/ML VIAL IVP PRN ×2 (02:22→23:22)
[2022-04-23 04:00] VITALS: BP 137/82
--- NOTE | 2022-04-23 04:00 | NUR ---
CONTINUES SLEEPING. ATIVAN EFFECTIVE.
--- NOTE | 2022-04-23 07:30 | NUR ---
HAND-OFF REPORT TO AM NURSE FOR CONTINUITY OF CARE. PUREWICK ADJUSTMENT. WARM BLANKET GIVEN. RELINQUISHED CARE.
[2022-04-23] MEDS: OSELTAMIVIR PHOSPHATE 75 MG CAP PO SCH ×2 (08:11→20:19)
[2022-04-23] MEDS: NACL 0.9% 1,000 ML IV SCH ×3 (08:11→23:45)
--- NOTE | 2022-04-23 08:40 | NUR ---
PT. WITH LOW RENETTA SCALE AT HIGH RISK, CONTINUE TO FOLLOW PRESSURE INJURY PREVENTION INTERVENTIONS. -POSITIONING: TURN AND REPOSITION PATIENT Q 2H OR SOONER USE PILLOWS TO KEEP BONY PROMINENCES FROM DIRECT CONTACT WITH SURFACES USE REPOSITIONING WEDGES TO PROVIDE 30-DEGREE ANGLE FOR SIDE LYING POSITIONS OFFLOADING OR FOAM DRESSING TO ALL TUBING TO PREVENT MEDICAL DEVICES RELATED PRESSURE INJURY -RE-EVALUATING AND MANAGING INCONTINENCE MONITOR SKIN CONDITION DURING POSITION CHANGE DO NOT MASSAGE REDNESS, BONY PROMINENCES FREQUENT DIANNE-CARE AND PROVIDE BARRIER CREAMS PRN IF SOILING MOISTURE CONTROL BY OFFER BED SHEPARD/URINAL /ABSORBENT PAD TO WICK AND HOLD MOISTURE KEEP SKIN DRY AND PROTECT FROM FRICTION -MANAGE FRICTION/SHEAR/MOBILITY KEEP HOB AT THE LOWEST LEVEL OF ELEVATION NO MORE THAN 30 DEGREE UNLESS OTHERWISE CONTRAINDICATED USE LIFT SHEET OR TRANSFER DEVICE TO MOVE PATIENT AND PREVENT LATERAL SHEER. PROTECT HEELS, ELBOWS BONY PROMINENCES WITH SKIN BERRIES OR FOAM DRESSING IF EXPOSED TO FRICTION OFFLOAD BILATERAL HEELS BY PLACING PILLOWS UNDER CALVES AT ALL TIMES, UNLESS OTHERWISE CONTRAINDICATED -PRESSURE REDISTRIBUTION SURFACE THERAPY PARVEEN ISOFLEX MATTRESS -NUTRITION: PLEASE FOLLOW RD RECOMMENDATIONS AND OFFER NUTRITION SUPPLEMENTS IF ORDERED. PLEASE CONTACT WOUND CARE NURSE FOR ANY QUESTION AND CHANGE OF WOUND CONDITION.
--- NOTE | 2022-04-23 09:35 | NUR ---
NURSES NOTE PATIENT RECEIVED ON BED SIDE , A/OX4 , VSS , SINUS ON MONITOR , SKIN INTACT ON IV SALINE LOCKED , ON 2 GRAM SODIUM DIET , ROOM AIR , BEDBOUND ON BED , STILL UNDER OBSERVE .
[2022-04-23 09:53] VITALS: BP 143/81
[2022-04-23 12:25] LABS: BASOPHILS % (AUTO) 0.4 % (0.0-2.0); EOSINOPHILS % (AUTO) 0.6 % (0.0-4.0); HEMOGLOBIN 11.5 g/dL (12.0-16.0); LYMPHOCYTES # (AUTO) 1.2 K/uL (2.5-16.5); MEAN CORPUSCULAR HEMOGLOBIN 32 pg (27-31); MEAN CORPUSCULAR HGB CONC 34 g/dL (33-37); MEAN CORPUSCULAR VOLUME 92.8 fL (80-94); MONOCYTES % (AUTO) 14.2 % (1.7-9.3); NEUTROPHILS # (AUTO) 4.5 K/uL (1.8-7.7); NEUTROPHILS % (AUTO) 66.8 % (42.2-75.2); PLATELET COUNT (AUTO) 152 K/uL (140-450); RED BLOOD CELL COUNT(AUTO) 3.67 MIL/uL (4.20-5.40); RED CELL DISTRIBUTION WIDTH 12.9 % (11.6-13.7); WHITE BLOOD COUNT (AUTO) 6.7 K/uL (4.8-10.8)
[2022-04-23 13:02] VITALS: BP 122/74
--- NOTE | 2022-04-23 14:51 | NUR ---
NURSES NOTE PATIENT A/OX4 , VSS , SINUS RHYTHM ON MONITOR ,BEDBOUND , SKIN INTACT , INCONTINENT X2 , ON IV FLUID N/S 0 9% 100CC/H , NO COMPLAIN AT THIS TIME , ON DROPLET ISOLATION , STILL UNDER OBSERVE .
[2022-04-23] MEDS: ACETAMINOPHEN 325 MG TAB PO PRN ×2 (15:13→21:06)
[2022-04-23 17:20] VITALS: BP 110/74
--- NOTE | 2022-04-23 19:42 | NUR ---
`SHIFT REPORT GIVEN TO LIBRADO DAMON ALL HER QUESTION ANSWER .
--- NOTE | 2022-04-23 19:45 | NUR ---
RECEIVED PATIENT LYING ON THE BED, IS AWAKE, ALERT AND ORIENTED.
[2022-04-23 20:00] VITALS: BP 126/72
--- NOTE | 2022-04-23 20:23 | NUR ---
DUE MEDICATION GIVEN ORDERED. BEDSIDE CARE DONE, PATIENT HAS LARGE BM. PATIENT DENIES PAIN, NO SOB NOTED. NS RUNNING @125ML/HR ON LAND HAND G20. CALL LIGHT WITHIN REACH. SAFETY PRECAUTIONS IN PLACE.
--- NOTE | 2022-04-23 23:22 | NUR ---
PRN ATIVAN 1MG GIVEN FOR ANXIETY, SAFETY MEASURES IN PLACE, CALL LIGHT WITHIN REACH. WILL CONTINUE TO MONITOR THE PATIENT.
[2022-04-24] VITALS: BP 123/75
--- NOTE | 2022-04-24 00:30 | NUR ---
PATIENT IS ASLEEP, CALM, NO SIGNS OF DISTRESS NOTED, NO SIGNS OF PAIN/DISCOMFORT NOTED.
[2022-04-24 04:00] VITALS: BP 143/83
[2022-04-24] MEDS: NACL 0.9% 1,000 ML IV SCH (04:16)
--- NOTE | 2022-04-24 04:20 | NUR ---
MORNING CARE DONE, PATIENT C/O HEADACHE, PRN TYLENOL GIVEN ORDERED, PATIENT DENIES SOB. CALL LIGHT WITHIN REACH.
[2022-04-24] MEDS: ACETAMINOPHEN 325 MG TAB PO PRN ×2 (04:38→11:33)
--- NOTE | 2022-04-24 07:35 | NUR ---
ENDORSED PATIENT TO DAY NURSE FOR CONTINUITY OF CARE. NEEDS MET THROUGHOUT THE SHIFT. PATIENT IN STABLE CONDITION.
[2022-04-24 08:00] VITALS: BP 159/78
--- NOTE | 2022-04-24 08:00 | NUR ---
RECEIVED REPORT FROM CATALYST MANUFACTURING OPERATOR FOR CONTINUITY OF CARE. PATIENT ALERT AWAKE ORIENTED X4, NOT IN ACUTE DISTRESS NOTED. DENIES PAIN AT THIS TIME. ON HEART MONITOR SHOWS SR. DENIES CHEST PAIN. DUE MEDICATION GIVEN AND TOLERATED WELL. WITH IVF ON GOING AND INFUSING WELL. DROPLET PRECAUTION OBSERVED. CALL LIGHT WITHIN REACH. WILL CONTINUE TO MONITOR.
[2022-04-24] MEDS ORDERED: CIPR500T4 PO (08:21)
--- NOTE | 2022-04-24 08:55 | NUR ---
DC PLANNING LATE ENTRY, PT SEEN ON 04/23/22 AT 12PM SW MET W/ PT AT BEDSIDE TO COMPLETE ASSESSMENT. PT ALERT AND ORIENTED AND ABLE TO PROVIDE ALL OF HER OWN INFORMATION. PT REPORTS RESIDING IN A MOBILE HOME WITH HER AND ROOMMATE, AT THE ADDRESS LISTED ON FILE. PT IDENTIFIED NANI JOHNSON, PARTNER, AND THELMA LARRY, FRIEND, EMERGENCY CONTACTS. PT REPORTS LAST VISIT WITH PCP DR CAMPOS, 1 WEEK AGO VIA TELEPHONE. PT REPORTS PREVIOUS TO PHONE APPT, SHE WAS ON HOSPICE SERVICES WITH [facility] FOR TWO YEARS. PT REPORTS HOSPICE SERVICES WERE RECENTLY TERMINATED ON MAR 30 KIDNEY DISEASE APPEARED TO RESOLVE ON ITS OWN. PT REPORTS MEDICATION COMPLIANCE AND REPORTS RECEIVING MEDICATION FROM [facility] ON [address] IN [place], WHEN NEEDED. PT REPORTS PRIMARILY BEING BEDBOUND HOWEVER, REPORTS UTILIZING ELECTRIC SCOOTER TOLERATED. PT REPORTS MENTAL HEALTH HX OF BIPOLAR D/O WHICH SHE REPORTS IS WELL MANAGED AND REPORTS TAKING MEDICATION TO AID IN MANAGING. PT DENIES HX OF [place], HH, SNF PLACEMENT, DIABETES AND DIALYSIS TX. PT REPORTS SPOUSE DOES NOT WANT HER TO RETURN HOME WITH THE FLU, SW EXPLAINED TO PT THAT PHYSICIAN WILL DC WHEN SHE IS MEDICALLY STABLE. TYPICALLY ONCE CLEARED FOR DC PT MUST RETURN HOME HOSPITAL STAY NO LONGER MEETS MEDICAL NECESSITY. YONATAN ENCOURAGED PT TO SPEAK WITH TO FIND A DESIGNATED ROOM TO STAY IN WHILE PT IS RECOVERS WITH THE FLU. SW REPORTED SHE WOULD SPEAK TO CM HOWEVER, A LONGER HOSPITAL STAY DUE TO FLU ONCE DC MAY NOT BE POSSIBLE, PT IN UNDERSTANDING. SW INQUIRED ON RESOURCES NEEDED, PT REQUESTED INFORMATION ON [facility] SERVICE AND [facility] PHONE NUMBER. SW PROVIDED PT WITH INFORMATION ON [facility] AND [facility]PSS INFORMATION. SW TO PROVIDE PT WITH PAPER COPY WITH INFORMATION. Addendum: 04/24/22 at 0857 by Sandra Capellan Amended: Links added. Addendum: 04/24/22 at 1527 by Sandra Capellan SS SPOKE WITH MAYTE AT [facility], WHO PROVIDED [facility] PHONE NUMBER, . OUTREACHED TO [facility] [phone] AND SPOKE WITH [facility]SP[facility] ARRANGED FOR PT RETURNING HOME, P/UP TIME 4:30PM CONFIRMATION [phone]. ENDORSED TO PT AND PT NURSE.
[2022-04-24] MEDS: OSELTAMIVIR PHOSPHATE 75 MG CAP PO SCH (09:25)
--- NOTE | 2022-04-24 10:00 | NUR ---
PATIENT SAID THAT IF SHE WILL BE DISCHARGE SHE NEEDS TRANSPORTATION BECAUSE SHE CANNOT WALK. DISTRIBUTOR OPERATOR CONTACTED AND EXHIBITION DESIGNER. WILL CONTINUE TO MONITOR.
--- NOTE | 2022-04-24 15:20 | NUR ---
LUIS MARBLE CUTTER SAID LOAN COORDINATOR TIME IS 4:30 PM. PATIENT MADE AWARE.
[2022-04-24 16:00] VITALS: BP 143/78
--- NOTE | 2022-04-24 18:00 | NUR ---
TRANSPORT IS HERE TO SYSTEM SALES CONSULTANT PATIENT. DC PAPERS SIGNED AND IV REMOVED. DC INSTRUCTION GIVEN AND VERBALIZED UNDERSTANDING. IN STABLE CONDITION.
== END 2022-04-24 18:00 | disposition home or self-care (01) | DRG 871 ==
LOC: MED 10:49 → MTU 15:44
PROVIDERS: ADMIT Hospitalist; ATTEND Hospitalist
DX: A41.9 Sepsis, unspecified organism (principal); G93.41 Metabolic encephalopathy; N39.0 Urinary tract infection, site not specified; Z68.44 Body mass index [BMI] 60.0-69.9, adult; D72.829 Elevated white blood cell count, unspecified; E66.01 Morbid (severe) obesity due to excess calories; F31.9 Bipolar disorder, unspecified; E78.5 Hyperlipidemia, unspecified; I12.9 Hypertensive chronic kidney disease with stage 1 through stage 4 chronic kidney disease, or unspecified chronic kidney disease; N18.9 Chronic kidney disease, unspecified; Z88.8 Allergy status to other drugs, medicaments and biological substances; Z91.030 Bee allergy status; Z79.899 Other long term (current) drug therapy; Z81.8 Family history of other mental and behavioral disorders; Z79.82 Long term (current) use of aspirin
CPT/HCPCS: 36415; 36600; 71045; 80053; 81001; 82550; 82803; 83605; 83735; 83880; 84484; 85025; 87040; 87081; 87086; 96361; 96374; 99285; J0696; J2060; J3475; J7060

== ENCOUNTER 2023-05-30 17:44 | Emergency (ER) | payer MEDICAID, OTHER ==
[~2023-05-30] VITALS: Ht 177.8 cm; Wt 136.1 kg
[~2023-05-30 17:44] MED LIST changes: -ARIP5TAB8 PO; -ASPI81EC97 PO; -CEFD300C3 PO; +CIPR500T4 PO; -DILT60TA PO; -DIPH25TA53 PO; -DIVA500T37 PO; -PREN-103 PO
[2023-05-30 17:45] VITALS: BP 115/85; PULSE 86; RESP 16; TEMP 98.3; O2SAT 97
[2023-05-30 18:00] VITALS: O2SAT 99
[2023-05-30 18:41] LABS: BASOPHILS # (AUTO) 0.1 K/uL (0.00-0.22); EOSINOPHILS # (AUTO) 0.1 K/uL (0-0.4); EOSINOPHILS % (AUTO) 1.1 % (0.0-4.0); HEMOGLOBIN 13.2 g/dL (12.0-16.0); LYMPHOCYTES # (AUTO) 2.6 K/uL (2.5-16.5); LYMPHOCYTES % (AUTO) 39.7 % (20.5-51.1); MEAN CORPUSCULAR HEMOGLOBIN 32 pg (27-31); MEAN CORPUSCULAR HGB CONC 34 g/dL (33-37); MEAN CORPUSCULAR VOLUME 95.7 fL (80-94); MONOCYTES # (AUTO) 0.6 K/uL (0.8-1.0); MONOCYTES % (AUTO) 10.1 % (1.7-9.3); NEUTROPHILS # (AUTO) 3.1 K/uL (1.8-7.7); NEUTROPHILS % (AUTO) 48.1 % (42.2-75.2); PLATELET COUNT (AUTO) 160 K/uL (140-450); RED BLOOD CELL COUNT(AUTO) 4.07 MIL/uL (4.20-5.40); RED CELL DISTRIBUTION WIDTH 13.9 % (11.6-13.7); WHITE BLOOD COUNT (AUTO) 6.4 K/uL (4.8-10.8)
[2023-05-30 18:53] LABS: ANION GAP 11.5 (8-16); CALCIUM 8.3 mg/dL (8.5-10.1); CARBON DIOXIDE 24.9 mmol/L (21-32); CREATININE 1.2 mg/dL (0.6-1.3); INR 0.99 (0.8-1.2); POTASSIUM 4.4 mmol/L (3.5-5.1); PROTHROMBIN TIME 10.4 secs (10.8-13.4)
[2023-05-30 18:56] LABS: ACETAMINOPHEN 19.9 ug/ml (10-30); ALANINE AMINOTRANSFERASE 8 U/L (12-78); ALBUMIN 2.3 g/dL (3.4-5.0); ALCOHOL, BLOOD < 3 mg/dL (<10); ALKALINE PHOSPHATASE 81 U/L (50-136); ASPARTATE AMINOTRANSFERASE 10 U/L (15-37); BILIRUBIN,DIRECT 0.1 mg/dL (0.0-0.3); CREATINE KINASE, TOTAL 22 U/L (26-192); TOTAL BILIRUBIN 0.4 mg/dL (0.0-1.0); TOTAL PROTEIN, SERUM 5.8 g/dL (6.4-8.2); VALPROIC ACID 54 ug/ml (50-100)
[2023-05-30 18:58] LABS: SALICYLATE < 2.8 mg/dL (2.8-20.0)
[2023-05-30 20:39] LABS: AMPHETAMINE, URINE NEGATIVE ng/ml (NEG <=1000); BARBITURATE, URINE NEGATIVE ng/ml (NEG <=200); BENZODIAZEPINE, URINE NEGATIVE ng/mL (NEG <=200); COCAINE, URINE NEGATIVE ng/mL (NEG <=300)
[2023-05-30 20:40] LABS: CANNABINOID, URINE NEGATIVE ng/mL (NEG <=50); OPIATE, URINE POSITIVE ng/mL (NEG <=2000); PHENCYCLIDINE SCREEN,URINE NEGATIVE ng/mL (NEG <=25)
[2023-05-30 21:40] VITALS: O2SAT 98
[2023-05-31 01:08] VITALS: O2SAT 98
[2023-05-31 04:18] VITALS: O2SAT 98
[2023-05-31 06:42] VITALS: O2SAT 97
[2023-05-31 07:33] VITALS: O2SAT 96
[2023-05-31 11:26] VITALS: O2SAT 96
[2023-05-31 12:34] VITALS: BP 126/74; PULSE 77; RESP 18; TEMP 98.2; O2SAT 98
== END 2023-05-31 12:34 | disposition short-term general hospital (02) ==
LOC: MED 17:44
DX: R45.851 Suicidal ideations (principal); Z20.822 Contact with and (suspected) exposure to COVID-19; T40.2X2A Poisoning by other opioids, intentional self-harm, initial encounter; Y92.89 Other specified places as the place of occurrence of the external cause
CPT/HCPCS: 36415; 80048; 80076; 80305; 82550; 85025; 85610; 87426; 93005; 99285; G0480; G0482

== ENCOUNTER 2023-12-19 16:35 | Inpatient (IN) | payer OTHER, MEDICAID ==
[~2023-12-19] VITALS: Ht 170.2 cm; Wt 144.7 kg
[2023-12-19 16:43] VITALS: BP 60/30; PULSE 60; RESP 20; TEMP 97.6; O2SAT 100
[2023-12-19] MEDS: NACL 0.9% 2,000 ML IV SCH (16:49)
[2023-12-19 17:05] LABS: BASOPHILS % (AUTO) 0.8 % (0.0-2.0); EOSINOPHILS % (AUTO) 0.2 % (0.0-4.0); HEMATOCRIT 34.2 % (36-48); HEMOGLOBIN 11.2 g/dL (12.0-16.0); LYMPHOCYTES # (AUTO) 1.5 K/uL (2.5-16.5); LYMPHOCYTES % (AUTO) 28.6 % (20.5-51.1); MEAN CORPUSCULAR HEMOGLOBIN 31 pg (27-31); MEAN CORPUSCULAR HGB CONC 33 g/dL (33-37); MEAN CORPUSCULAR VOLUME 94.4 fL (80-94); MONOCYTES # (AUTO) 0.7 K/uL (0.8-1.0); MONOCYTES % (AUTO) 14.1 % (1.7-9.3); NEUTROPHILS % (AUTO) 56.3 % (42.2-75.2); PLATELET COUNT (AUTO) 167 K/uL (140-450); RED BLOOD CELL COUNT(AUTO) 3.62 MIL/uL (4.20-5.40); WHITE BLOOD COUNT (AUTO) 5.3 K/uL (4.8-10.8)
[2023-12-19 17:22] LABS: CALCIUM 7.8 mg/dL (8.5-10.1); CARBON DIOXIDE 26.2 mmol/L (21-32); POTASSIUM 4.2 mmol/L (3.5-5.1)
[2023-12-19 17:25] LABS: PROTHROMBIN TIME 10.5 secs (10.8-13.4)
[2023-12-19 17:29] LABS: ALANINE AMINOTRANSFERASE 19 U/L (12-78); ALBUMIN 2.4 g/dL (3.4-5.0); ALKALINE PHOSPHATASE 64 U/L (50-136); ASPARTATE AMINOTRANSFERASE 21 U/L (15-37); CREATINE KINASE, TOTAL 16 U/L (26-192); TOTAL BILIRUBIN 0.2 mg/dL (0.0-1.0); TOTAL PROTEIN, SERUM 5.4 g/dL (6.4-8.2)
[2023-12-19 17:31] LABS: LACTIC ACID 1.2 mmol/L (0.4-2.0)
[2023-12-19] MEDS ORDERED: cefTRIAXone 1,000 MG VIAL ONE (17:31)
[2023-12-19] MEDS: KETOROLAC 30 MG/ML VIAL IVP ONE (18:56)
[2023-12-19] MEDS: fentaNYL citrate 0.05 MG/ML VIAL IVP ONE (18:57)
[2023-12-19 19:27] LABS: BILIRUBIN,URINE NEGATIVE (NEGATIVE); BLOOD, URINE 3+ (NEGATIVE); COLOR,URINE YELLOW (YELLOW); LEUKOCYTE ESTERASE ,URINE 2+ (NEGATIVE); NITRITE, URINE POSITIVE (NEGATIVE); PROTEIN,URINE NEGATIVE (NEGATIVE); UGLUCOSE NEGATIVE (NEGATIVE); UROBILINOGEN,URINE 0.2 EU/dL (0.2 - 1)
[2023-12-19 19:39] LABS: APPEARANCE,URINE SLIGHTLY HAZY (CLEAR)
[2023-12-19 19:44] LABS: BACTERIA,URINE 3+ /HPF (None Seen); MUCUS,URINE 1+ /LPF (None Seen); SQUAMOUS EPITHELIAL CELL,UR 4-10 (MOD) /LPF (0-3 (FEW)); WBC,URINE 16-25 (MOD) /HPF (0-5)
[2023-12-19 20:02] LABS: FLU A ANTIGEN negative (NEGATIVE); FLU B ANTIGEN NEGATIVE (NEGATIVE)
[2023-12-19] MEDS ORDERED: CARI3CAP PO (21:42)
[2023-12-19] MEDS ORDERED: HYDR25TA32 PO (21:42)
[2023-12-19] MEDS ORDERED: GABA100C PO (21:42)
[2023-12-19] MEDS ORDERED: TRAZ-343 PO (21:42)
[2023-12-19] MEDS ORDERED: ESCI20TA PO (21:42)
[2023-12-19] MEDS ORDERED: TIZA4CAP PO (21:42)
[2023-12-19] MEDS ORDERED: ACETAMINOPHEN 325 MG TAB PO PRN (22:05)
[2023-12-19] MEDS ORDERED: ONDANSETRON 4 MG/2 ML VIAL IVP PRN (22:05)
[2023-12-19] MEDS: NACL 0.9% 1,000 ML IV SCH (22:24)
[2023-12-19 22:50] VITALS: PULSE 65; RESP 19; O2SAT 97
[2023-12-20] VITALS (7 sets, daily range): BP systolic 100–129; BP diastolic 52–73; PULSE 61–69; RESP 18–79; TEMP 97.6–98.6; O2SAT 96–99
[2023-12-20] MEDS: traZODone 50 MG TAB PO PRN (02:52)
[2023-12-20 06:50] LABS: BASOPHILS % (AUTO) 0.7 % (0.0-2.0); EOSINOPHILS % (AUTO) 0.3 % (0.0-4.0); HEMATOCRIT 35.5 % (36-48); HEMOGLOBIN 11.5 g/dL (12.0-16.0); LYMPHOCYTES # (AUTO) 2.1 K/uL (2.5-16.5); LYMPHOCYTES % (AUTO) 52.7 % (20.5-51.1); MEAN CORPUSCULAR HEMOGLOBIN 31 pg (27-31); MEAN CORPUSCULAR HGB CONC 33 g/dL (33-37); MONOCYTES # (AUTO) 0.5 K/uL (0.8-1.0); MONOCYTES % (AUTO) 11.8 % (1.7-9.3); NEUTROPHILS # (AUTO) 1.4 K/uL (1.8-7.7); NEUTROPHILS % (AUTO) 34.5 % (42.2-75.2); PLATELET COUNT (AUTO) 167 K/uL (140-450); RED BLOOD CELL COUNT(AUTO) 3.77 MIL/uL (4.20-5.40); RED CELL DISTRIBUTION WIDTH 13.1 % (11.6-13.7)
[2023-12-20 07:06] LABS: CALCIUM 7.7 mg/dL (8.5-10.1); CREATININE 1.6 mg/dL (0.6-1.3); POTASSIUM 4.1 mmol/L (3.5-5.1)
[2023-12-20 07:12] LABS: ANION GAP 11.5 (8-16); CARBON DIOXIDE 24.6 mmol/L (21-32)
[2023-12-20] MEDS: MORPHINE SULFATE 2 MG/ML SYR IVP PRN (09:26)
[2023-12-20] MEDS: DIVALPROEX 250 MG TABEC PO SCH (17:00)
[2023-12-20] MEDS: BENZOCAINE/MENTHOL 1 LOZ MM SCH (17:13)
[2023-12-20] MEDS ORDERED: traZODone 50 MG TAB PO SCH (21:00)
[2023-12-20] MEDS ORDERED: GABAPENTIN 100 MG CAP PO SCH (21:00)
[2023-12-20] MEDS: LACTOBACILLUS RHAMNOSUS GG 1 EACH CAP PO SCH (23:08)
[2023-12-20] MEDS: GABAPENTIN 100 MG CAP PO SCH (23:08)
[2023-12-20] MEDS: tiZANidine 4 MG TAB PO SCH (23:09)
[2023-12-21] VITALS: BP 116/60; PULSE 57; PULSE 64; RESP 18; TEMP 97.6; O2SAT 96
[2023-12-21 04:00] VITALS: BP 108/58; PULSE 58; PULSE 60; RESP 19; TEMP 97.1; O2SAT 96
[2023-12-21 08:00] VITALS: BP 130/91; PULSE 58; RESP 18; TEMP 97.5; O2SAT 100; O2SAT 98
[2023-12-21] MEDS: ESCITALOPRAM 20 MG TAB PO SCH (08:24)
[2023-12-21] MEDS: tiZANidine 4 MG TAB PO SCH (08:25)
[2023-12-21 12:53] VITALS: BP 126/70; PULSE 58; RESP 18; TEMP 97.2; O2SAT 98
[2023-12-21 12:58] VITALS: PULSE 58
[2023-12-21] MEDS ORDERED: CEPH-588 PO (14:52)
[2023-12-21 15:04] VITALS: BP 126/70; PULSE 58; RESP 18; TEMP 97.2
== END 2023-12-21 17:05 | disposition home or self-care (01) | DRG 640 ==
LOC: MED 16:35 → MTU 22:04
PROVIDERS: ADMIT Hospitalist; ATTEND Hospitalist
DX: E86.0 Dehydration (principal); N17.0 Acute kidney failure with tubular necrosis; N39.0 Urinary tract infection, site not specified; Z68.41 Body mass index [BMI] 40.0-44.9, adult; Z20.822 Contact with and (suspected) exposure to COVID-19; I10 Essential (primary) hypertension; Z79.899 Other long term (current) drug therapy; Z88.8 Allergy status to other drugs, medicaments and biological substances; Z91.018 Allergy to other foods; E66.01 Morbid (severe) obesity due to excess calories
CPT/HCPCS: 36415; 71045; 80048; 80076; 81001; 82550; 83605; 83735; 83880; 84484; 85025; 85610; 85730; 87040; 87081; 87086; 93005; 96361; 96365; 96375; 99291; J0696; J1885; J2270; J3010; J7060; Q0092